=== PATIENT | male | born 1950 | race Caucasian/White ===

== ENCOUNTER → 2016-10-05 | Outpatient (CLI) | payer MEDICARE ==
[~2016-10-05] MED LIST: ACET-1600 PO; ATOR40TA78 PO; CEFD300C37 PO; CLOP75TA PO; DOXY100T PO; LISI1TAB3 PO; OMEP20TA62 PO; OXYC1TAB9 PO; PRED-402 PO; SULF1TAB24 PO
== END | disposition home or self-care (01) ==
LOC: CFH 07:40
PROVIDERS: ATTEND Internal Medicine Critical Care Medicine
DX: I77.810 Thoracic aortic ectasia (principal); J98.11 Atelectasis; N28.1 Cyst of kidney, acquired; N62 Hypertrophy of breast; M25.78 Osteophyte, vertebrae; J98.4 Other disorders of lung; I70.0 Atherosclerosis of aorta
CPT/HCPCS: 71250

== ENCOUNTER → 2016-12-04 | Outpatient (CLI) | payer MEDICARE ==
[~2016-12-04] MED LIST changes: +ALBU0.63 NEB; +ALBU18HF INH; +OMNIPAQUE 350 MG/ML, 150 ML BOTTLE ONE; +OXYC1TAB7 PO
== END | disposition home or self-care (01) ==
LOC: CFH 13:47
PROVIDERS: ATTEND Urology
DX: N28.1 Cyst of kidney, acquired (principal); K57.30 Diverticulosis of large intestine without perforation or abscess without bleeding; I70.0 Atherosclerosis of aorta; K76.89 Other specified diseases of liver
CPT/HCPCS: 74178; Q9967

== ENCOUNTER → 2017-01-24 | Outpatient (CLI) | payer MEDICARE ==
[~2017-01-24] MED LIST changes: +GADOBUTROL 7.5 MMOL/7.5 ML VIAL ONE; -OMNIPAQUE 350 MG/ML, 150 ML BOTTLE ONE
== END | disposition home or self-care (01) ==
LOC: CFH 09:18
PROVIDERS: ATTEND Specialist
DX: R90.82 White matter disease, unspecified (principal)
CPT/HCPCS: 70553; 82565; A9585

== ENCOUNTER 2017-04-19 11:24 | Inpatient (IN) | payer MEDICARE ==
[~2017-04-19] VITALS: Ht 162.6 cm; Wt 67.8 kg
[~2017-04-19 11:24] MED LIST changes: -GADOBUTROL 7.5 MMOL/7.5 ML VIAL ONE
[2017-04-19] MEDS ORDERED: ALBUTEROL/IPRATROPIUM 2.5MG/0.5MG, 3 ML ONE ×2 (12:14→14:27)
[2017-04-19 12:25] LABS: BASOPHILS # (AUTO) 0.03 x10^3/uL (0-0.1); BASOPHILS % (AUTO) 0 % (0-1); EOSINOPHILS # (AUTO) 0.03 x10^3/uL (0-0.4); EOSINOPHILS % (AUTO) 0 % (1-7); LYMPHOCYTES # (AUTO) 1.77 x10^3/uL (1-3.4); LYMPHOCYTES % (AUTO) 14 % (22-44); MD NO; MEAN CORPUSCULAR HEMOGLOBIN 31.8 pg (27.5-34.5); MEAN CORPUSCULAR HGB CONC 33.7 g/dL (33.2-36.2); MEAN CORPUSCULAR VOLUME 94.4 fL (81-97); MEAN PLATELET VOLUME 7.5 fL (7.4-10.4); MONOCYTES # (AUTO) 1.29 x10^3/uL (0.2-0.8); MONOCYTES % (AUTO) 10 % (2-9); NEUTROPHILS # (AUTO) 9.55 x10^3/uL (1.8-6.8); NEUTROPHILS % (AUTO) 75 % (42-75); PLATELET COUNT 206 x10^3/uL (130-400); RED BLOOD COUNT 4.91 x10^6/uL (4.38-5.82); RED CELL DISTRIBUTION WIDTH 12.7 % (9.4-14.8)
[2017-04-19] MEDS ORDERED: ALBUTEROL/IPRATROPIUM 2.5MG/0.5MG, 3 ML NPPB ONE (12:30)
[2017-04-19] MEDS ORDERED: SODIUM CHLORIDE FLUSH 10ML SYR IVF ONE (12:30)
[2017-04-19 12:33] LABS: ALANINE AMINOTRANSFERASE 28 U/L (12-78); ALBUMIN 3.8 g/dL (3.4-5.0); ANION GAP 6 mmol/L (5-15); CALCIUM 8.8 mg/dL (8.5-10.1); CHLORIDE 106 mmol/L (98-107)
[2017-04-19 12:42] LABS: ALKALINE PHOSPHATASE 43 U/L (45-117); BILIRUBIN,TOTAL 0.3 mg/dL (0.2-1.0); CREATININE 0.87 mg/dL (0.7-1.3); TOTAL PROTEIN 7.2 g/dL (6.4-8.2)
[2017-04-19] MEDS ORDERED: ALBU18HF INH (13:11)
[2017-04-19] MEDS ORDERED: GLYC10.7 INH (13:13)
[2017-04-19] MEDS ORDERED: VARE1TAB21 PO (13:13)
[2017-04-19] MEDS ORDERED: ALBUTEROL 0.5%, 20ML NPPB SCH (13:30)
[2017-04-19 13:52] LABS: RAPID INFLUENZA A Negative (Negative); RAPID INFLUENZA B Negative (Negative)
[2017-04-19] MEDS: ALBUTEROL/IPRATROPIUM 2.5MG/0.5MG, 3 ML NPPB SCH ×2 (14:31→19:30)
[2017-04-19] MEDS ORDERED: DOCUSATE 100 MG CAPSULE PO PRN (15:00)
[2017-04-19] MEDS ORDERED: PROMETHAZINE 25 MG/ML, 1ML IM PRN (15:00)
[2017-04-19] MEDS ORDERED: POLYETHYLENE GLYCOL 17 GM PACKET PO PRN (15:00)
[2017-04-19] MEDS ORDERED: BISACODYL 10 MG SUPP PR PRN (15:00)
[2017-04-19] MEDS ORDERED: ONDANSETRON 2MG/ML, 2ML IVPush PRN (15:00)
[2017-04-19] MEDS: methylPREDNISolone SOD SUCC 125 MG/2 ML IVPush SCH (16:15)
[2017-04-19] MEDS: ENOXAPARIN 40 MG/0.4 ML SQ SCH (16:17)
[2017-04-19] MEDS: SODIUM CHLORIDE 0.9% 1,000 ML IV SCH (17:15)
[2017-04-19] MEDS: ACETAMINOPHEN 325 MG TABLET PO PRN (17:29)
[2017-04-19] MEDS: NICOTINE 21 MG/24 HR PATCH.TD24 TD SCH (18:45)
[2017-04-19 18:57] VITALS: BP 126/71
[2017-04-19] MEDS: GLYCOPYRROLATE INH SCH (20:35)
[2017-04-19] MEDS: ATORVASTATIN 40 MG TABLET PO SCH (20:35)
[2017-04-19] MEDS: FORMOTEROL FUM INH SCH (20:35)
[2017-04-19] MEDS: DOXYCYCLINE 100MG TABLET PO SCH (20:35)
[2017-04-20] MEDS: methylPREDNISolone SOD SUCC 125 MG/2 ML IVPush SCH ×3 (00:11→16:00)
[2017-04-20] MEDS: SODIUM CHLORIDE 0.9% 1,000 ML IV SCH (00:39)
[2017-04-20 02:00] VITALS: BP 130/71
[2017-04-20 05:20] LABS: BASOPHILS # (AUTO) 0.01 x10^3/uL (0-0.1); BASOPHILS % (AUTO) 0 % (0-1); EOSINOPHILS % (AUTO) 0 % (1-7); LYMPHOCYTES % (AUTO) 8 % (22-44); MD NO; MEAN CORPUSCULAR HGB CONC 33.7 g/dL (33.2-36.2); MEAN CORPUSCULAR VOLUME 94.8 fL (81-97); MEAN PLATELET VOLUME 7.9 fL (7.4-10.4); MONOCYTES # (AUTO) 0.29 x10^3/uL (0.2-0.8); MONOCYTES % (AUTO) 3 % (2-9); NEUTROPHILS # (AUTO) 8.97 x10^3/uL (1.8-6.8); NEUTROPHILS % (AUTO) 89 % (42-75); PLATELET COUNT 174 x10^3/uL (130-400); RED BLOOD COUNT 4.48 x10^6/uL (4.38-5.82); RED CELL DISTRIBUTION WIDTH 12.8 % (9.4-14.8)
[2017-04-20 05:33] LABS: CHLORIDE 108 mmol/L (98-107)
[2017-04-20 05:48] LABS: ALANINE AMINOTRANSFERASE 26 U/L (12-78); ALBUMIN 3.2 g/dL (3.4-5.0); ALKALINE PHOSPHATASE 39 U/L (45-117); ANION GAP 7 mmol/L (5-15); BILIRUBIN,TOTAL 0.3 mg/dL (0.2-1.0); CALCIUM 8.7 mg/dL (8.5-10.1); CREATININE 0.88 mg/dL (0.7-1.3); THYROID STIMULATING HORMONE 0.184 mIU/L (0.358-3.740); TOTAL PROTEIN 6.1 g/dL (6.4-8.2)
[2017-04-20 06:13] VITALS: BP 117/65
[2017-04-20] MEDS: ALBUTEROL/IPRATROPIUM 2.5MG/0.5MG, 3 ML NPPB SCH ×4 (07:30→20:00)
[2017-04-20] MEDS: NICOTINE 21 MG/24 HR PATCH.TD24 TD SCH (08:42)
[2017-04-20] MEDS: OXYcodone/APAP 5/325MG TABLET PO SCH ×2 (08:45→18:18)
[2017-04-20] MEDS: OMEPRAZOLE 20 MG CAPSULE.DR PO SCH (08:45)
[2017-04-20] MEDS: DOXYCYCLINE 100MG TABLET PO SCH ×2 (08:45→20:28)
[2017-04-20] MEDS: CLOPIDOGREL 75 MG TABLET PO SCH (08:45)
[2017-04-20] MEDS: VARENICLINE 1MG TABLET PO SCH (08:45)
[2017-04-20] MEDS: GLYCOPYRROLATE INH SCH ×2 (08:46→20:28)
[2017-04-20] MEDS: FORMOTEROL FUM INH SCH ×2 (08:46→20:28)
[2017-04-20] MEDS: ACETAMINOPHEN 325 MG TABLET PO PRN (09:04)
[2017-04-20] MEDS: LISINOPRIL PO SCH (10:00)
[2017-04-20] MEDS: HYDROCHLOROTHIAZIDE PO SCH (10:00)
[2017-04-20] MEDS: [UNRECOGNIZED DRUG - OTHER] PO SCH (10:00)
[2017-04-20 13:39] VITALS: BP 117/61
[2017-04-20] MEDS: ENOXAPARIN 40 MG/0.4 ML SQ SCH (16:00)
[2017-04-20 18:54] VITALS: BP 122/63
[2017-04-20] MEDS: ATORVASTATIN 40 MG TABLET PO SCH (20:28)
[2017-04-21 02:30] VITALS: BP 119/69
[2017-04-21] MEDS: methylPREDNISolone SOD SUCC 125 MG/2 ML IVPush SCH ×2 (04:10→12:30)
[2017-04-21 05:17] LABS: BASOPHILS # (AUTO) 0.01 x10^3/uL (0-0.1); BASOPHILS % (AUTO) 0 % (0-1); EOSINOPHILS # (AUTO) 0.01 x10^3/uL (0-0.4); EOSINOPHILS % (AUTO) 0 % (1-7); LYMPHOCYTES # (AUTO) 1.12 x10^3/uL (1-3.4); LYMPHOCYTES % (AUTO) 7 % (22-44); MD NO; MEAN CORPUSCULAR HEMOGLOBIN 32.1 pg (27.5-34.5); MEAN CORPUSCULAR HGB CONC 33.8 g/dL (33.2-36.2); MONOCYTES # (AUTO) 0.89 x10^3/uL (0.2-0.8); MONOCYTES % (AUTO) 6 % (2-9); NEUTROPHILS # (AUTO) 13.09 x10^3/uL (1.8-6.8); NEUTROPHILS % (AUTO) 87 % (42-75); PLATELET COUNT 182 x10^3/uL (130-400); RED BLOOD COUNT 4.34 x10^6/uL (4.38-5.82); RED CELL DISTRIBUTION WIDTH 13.1 % (9.4-14.8)
[2017-04-21 05:24] LABS: ANION GAP 6 mmol/L (5-15); CHLORIDE 105 mmol/L (98-107)
[2017-04-21 05:26] LABS: CREATININE 0.88 mg/dL (0.7-1.3)
[2017-04-21] MEDS: ALBUTEROL/IPRATROPIUM 2.5MG/0.5MG, 3 ML NPPB SCH ×4 (07:00→19:33)
[2017-04-21 07:10] VITALS: BP 112/60
[2017-04-21] MEDS: GLYCOPYRROLATE INH SCH ×2 (08:10→20:11)
[2017-04-21] MEDS: DOXYCYCLINE 100MG TABLET PO SCH ×2 (08:10→20:11)
[2017-04-21] MEDS: VARENICLINE 1MG TABLET PO SCH (08:10)
[2017-04-21] MEDS: FORMOTEROL FUM INH SCH ×2 (08:10→20:11)
[2017-04-21] MEDS: CLOPIDOGREL 75 MG TABLET PO SCH (08:10)
[2017-04-21] MEDS: OMEPRAZOLE 20 MG CAPSULE.DR PO SCH (08:10)
[2017-04-21] MEDS: HYDROCHLOROTHIAZIDE PO SCH (08:11)
[2017-04-21] MEDS: LISINOPRIL PO SCH (08:11)
[2017-04-21] MEDS: [UNRECOGNIZED DRUG - OTHER] PO SCH (08:11)
[2017-04-21] MEDS: OXYcodone/APAP 5/325MG TABLET PO SCH (08:18)
[2017-04-21] MEDS: NICOTINE 14MG/24 HR PATCH.TD24 TD SCH (08:30)
[2017-04-21] MEDS ORDERED: NICOTINE GUM 2 MG BC PRN (08:30)
[2017-04-21 12:33] VITALS: BP 127/59
[2017-04-21] MEDS: ENOXAPARIN 40 MG/0.4 ML SQ SCH (15:59)
[2017-04-21] MEDS: ACETAMINOPHEN 325 MG TABLET PO PRN (20:11)
[2017-04-21] MEDS: ATORVASTATIN 40 MG TABLET PO SCH (20:11)
[2017-04-21 20:18] VITALS: BP 125/64
[2017-04-22 01:08] VITALS: BP 121/55
[2017-04-22 07:37] VITALS: BP 157/81
[2017-04-22] MEDS: NICOTINE 14MG/24 HR PATCH.TD24 TD SCH (07:47)
[2017-04-22] MEDS: predniSONE 50MG TABLET PO SCH (07:47)
[2017-04-22] MEDS: VARENICLINE 1MG TABLET PO SCH ×2 (07:47→21:08)
[2017-04-22] MEDS: ACETAMINOPHEN 325 MG TABLET PO PRN (07:47)
[2017-04-22] MEDS: DOXYCYCLINE 100MG TABLET PO SCH ×2 (07:48→21:08)
[2017-04-22] MEDS: CLOPIDOGREL 75 MG TABLET PO SCH (07:48)
[2017-04-22] MEDS: [UNRECOGNIZED DRUG - OTHER] PO SCH (07:49)
[2017-04-22] MEDS: HYDROCHLOROTHIAZIDE PO SCH (07:49)
[2017-04-22] MEDS: FORMOTEROL FUM INH SCH ×2 (07:49→21:00)
[2017-04-22] MEDS: GLYCOPYRROLATE INH SCH ×2 (07:49→21:00)
[2017-04-22] MEDS: LISINOPRIL PO SCH (07:49)
[2017-04-22] MEDS: OMEPRAZOLE 20 MG CAPSULE.DR PO SCH (07:57)
[2017-04-22] MEDS: ALBUTEROL/IPRATROPIUM 2.5MG/0.5MG, 3 ML NPPB SCH ×4 (08:05→19:11)
[2017-04-22 13:24] VITALS: BP 120/69
[2017-04-22] MEDS: ENOXAPARIN 40 MG/0.4 ML SQ SCH (16:33)
[2017-04-22 20:29] VITALS: BP 139/72
[2017-04-22] MEDS ORDERED: OXYcodone/APAP 5/325MG TABLET PO SCH (21:00)
[2017-04-22] MEDS: ATORVASTATIN 40 MG TABLET PO SCH (21:08)
[2017-04-23 03:58] VITALS: BP 119/66
[2017-04-23 06:49] VITALS: BP 118/71
[2017-04-23] MEDS: ALBUTEROL/IPRATROPIUM 2.5MG/0.5MG, 3 ML NPPB SCH ×2 (07:45→12:00)
[2017-04-23] MEDS: NICOTINE 14MG/24 HR PATCH.TD24 TD SCH (08:19)
[2017-04-23] MEDS: OMEPRAZOLE 20 MG CAPSULE.DR PO SCH (08:20)
[2017-04-23] MEDS: DOXYCYCLINE 100MG TABLET PO SCH (08:20)
[2017-04-23] MEDS: predniSONE 50MG TABLET PO SCH (08:20)
[2017-04-23] MEDS: VARENICLINE 1MG TABLET PO SCH (08:20)
[2017-04-23] MEDS: CLOPIDOGREL 75 MG TABLET PO SCH (08:20)
[2017-04-23] MEDS: HYDROCHLOROTHIAZIDE PO SCH (08:22)
[2017-04-23] MEDS: FORMOTEROL FUM INH SCH (08:22)
[2017-04-23] MEDS: [UNRECOGNIZED DRUG - OTHER] PO SCH (08:22)
[2017-04-23] MEDS: GLYCOPYRROLATE INH SCH (08:22)
[2017-04-23] MEDS: LISINOPRIL PO SCH (08:22)
[2017-04-23] MEDS ORDERED: DOXY100T PO (12:53)
[2017-04-23] MEDS ORDERED: PRED10TA PO (14:26)
== END 2017-04-23 15:01 | disposition home or self-care (01) | DRG 189 ==
LOC: ED 12:13 → EDIP 13:43 → 3NE 15:04 → DCLOUNGE 04-23 14:40
PROVIDERS: ADMIT Internal Medicine; ATTEND Internal Medicine
DX: J96.21 Acute and chronic respiratory failure with hypoxia (principal); J44.0 Chronic obstructive pulmonary disease with (acute) lower respiratory infection; Z99.81 Dependence on supplemental oxygen; J44.1 Chronic obstructive pulmonary disease with (acute) exacerbation; E78.5 Hyperlipidemia, unspecified; G89.4 Chronic pain syndrome; I10 Essential (primary) hypertension; I73.9 Peripheral vascular disease, unspecified; J20.9 Acute bronchitis, unspecified; F17.210 Nicotine dependence, cigarettes, uncomplicated; Z66 Do not resuscitate; T38.0X5A Adverse effect of glucocorticoids and synthetic analogues, initial encounter; K21.9 Gastro-esophageal reflux disease without esophagitis; R51 Headache; R91.1 Solitary pulmonary nodule; Z88.8 Allergy status to other drugs, medicaments and biological substances; Z82.49 Family history of ischemic heart disease and other diseases of the circulatory system; Z79.899 Other long term (current) drug therapy; Z98.1 Arthrodesis status
CPT/HCPCS: 36415; 71010; 80048; 80053; 83735; 83880; 84100; 84439; 84443; 85025; 87040; 87400; 93005; 94640; 99285; J1650; J7620; J2930; J7030; J7512

== ENCOUNTER 2017-06-14 06:38 | Inpatient (IN) | payer MEDICARE ==
[~2017-06-14] VITALS: Ht 162.6 cm; Wt 68.8 kg
[~2017-06-14 06:38] MED LIST changes: +GLYC10.7 INH; +PRED10TA PO; +VARE1TAB21 PO
[2017-06-14] MEDS ORDERED: ALBUTEROL/IPRATROPIUM 2.5MG/0.5MG, 3 ML ONE ×2 (07:21→08:00)
[2017-06-14 07:31] LABS: BASOPHILS # (AUTO) 0.03 x10^3/uL (0-0.1); BASOPHILS % (AUTO) 0 % (0-1); EOSINOPHILS # (AUTO) 0.01 x10^3/uL (0-0.4); EOSINOPHILS % (AUTO) 0 % (1-7); LYMPHOCYTES # (AUTO) 1.29 x10^3/uL (1-3.4); LYMPHOCYTES % (AUTO) 21 % (22-44); MD NO; MEAN CORPUSCULAR HGB CONC 33.9 g/dL (33.2-36.2); MEAN CORPUSCULAR VOLUME 94.3 fL (81-97); MEAN PLATELET VOLUME 7.2 fL (7.4-10.4); MONOCYTES # (AUTO) 1.06 x10^3/uL (0.2-0.8); MONOCYTES % (AUTO) 17 % (2-9); NEUTROPHILS # (AUTO) 3.88 x10^3/uL (1.8-6.8); NEUTROPHILS % (AUTO) 62 % (42-75); PLATELET COUNT 191 x10^3/uL (130-400); RED BLOOD COUNT 4.35 x10^6/uL (4.38-5.82); RED CELL DISTRIBUTION WIDTH 13.8 % (9.4-14.8)
[2017-06-14 07:42] LABS: ALBUMIN 3.8 g/dL (3.4-5.0); ANION GAP 10 mmol/L (5-15); CALCIUM 8.8 mg/dL (8.5-10.1); CHLORIDE 105 mmol/L (98-107); CREATININE 0.94 mg/dL (0.7-1.3)
[2017-06-14] MEDS: ALBUTEROL/IPRATROPIUM 2.5MG/0.5MG, 3 ML NPPB SCH ×5 (07:44→22:00)
[2017-06-14 09:52] LABS: TROPONIN I < 0.015 ng/mL (0.000-0.045)
[2017-06-14 09:59] LABS: RAPID INFLUENZA A Negative (Negative); RAPID INFLUENZA B Negative (Negative)
[2017-06-14] MEDS ORDERED: OXYcodone/APAP 5/325MG TABLET PO SCH (10:30)
[2017-06-14] MEDS: VARENICLINE 1MG TABLET PO SCH (10:30)
[2017-06-14] MEDS ORDERED: BUDESONIDE 0.5 MG/2 ML INHA INH SCH (10:30)
[2017-06-14] MEDS: OMEPRAZOLE 20 MG CAPSULE.DR PO SCH (10:30)
[2017-06-14] MEDS: HYDROCHLOROTHIAZIDE 12.5 MG CAPSULE PO SCH (10:30)
[2017-06-14] MEDS: LISINOPRIL 10 MG TABLET PO SCH (10:30)
[2017-06-14] MEDS: Glycopyrrolate/Formoterol Fum (Bevespi Aerosphere Inhaler) INH SCH ×2 (10:30→20:56)
[2017-06-14] MEDS ORDERED: ONDANSETRON 2MG/ML, 2ML IVPush PRN (10:30)
[2017-06-14 10:50] VITALS: BP 112/66
[2017-06-14] MEDS ORDERED: ALBUTEROL/IPRATROPIUM 2.5MG/0.5MG, 3 ML NPPB SCH (11:00)
[2017-06-14] MEDS ORDERED: OXYC-302 PO (11:11)
[2017-06-14] MEDS ORDERED: ALBUTEROL/IPRATROPIUM 2.5MG/0.5MG, 3 ML NPPB PRN (12:00)
[2017-06-14] MEDS: BENZONATATE 100 MG CAPSULE PO SCH ×3 (12:50→20:55)
[2017-06-14] MEDS: GUAIFENESIN/DM 200-20MG, 10ML UDC PO PRN (12:50)
[2017-06-14 12:57] VITALS: BP 126/74
[2017-06-14] MEDS ORDERED: ALBUTEROL SULFATE 2.5 MG/3 ML NPPB PRN (13:00)
[2017-06-14] MEDS: methylPREDNISolone SOD SUCC 125 MG/2 ML IVPush SCH ×2 (14:34→20:55)
[2017-06-14] MEDS: DOXYCYCLINE 100MG TABLET PO SCH ×2 (14:34→20:55)
[2017-06-14 19:24] VITALS: BP 121/71
[2017-06-14] MEDS: ATORVASTATIN 40 MG TABLET PO SCH (20:55)
[2017-06-14] MEDS: CLOPIDOGREL 75 MG TABLET PO SCH (20:55)
[2017-06-14] MEDS ORDERED: DIPHENHYDRAMINE 50 MG CAPSULE PO PRN (21:00)
[2017-06-15 02:01] VITALS: BP 117/73
[2017-06-15] MEDS: methylPREDNISolone SOD SUCC 125 MG/2 ML IVPush SCH ×3 (04:47→20:15)
[2017-06-15] MEDS: ALBUTEROL/IPRATROPIUM 2.5MG/0.5MG, 3 ML NPPB SCH ×5 (06:00→22:45)
[2017-06-15 08:21] VITALS: BP 133/66
[2017-06-15] MEDS: VARENICLINE 1MG TABLET PO SCH (09:00)
[2017-06-15] MEDS: Glycopyrrolate/Formoterol Fum (Bevespi Aerosphere Inhaler) INH SCH ×2 (09:00→20:15)
[2017-06-15] MEDS: GUAIFENESIN/DM 200-20MG, 10ML UDC PO PRN (10:04)
[2017-06-15] MEDS: OMEPRAZOLE 20 MG CAPSULE.DR PO SCH (10:06)
[2017-06-15] MEDS: HYDROCHLOROTHIAZIDE 12.5 MG CAPSULE PO SCH (10:06)
[2017-06-15] MEDS: CLOPIDOGREL 75 MG TABLET PO SCH (10:06)
[2017-06-15] MEDS: DOXYCYCLINE 100MG TABLET PO SCH ×2 (10:07→20:15)
[2017-06-15] MEDS: BENZONATATE 100 MG CAPSULE PO SCH ×3 (10:07→20:15)
[2017-06-15] MEDS: LISINOPRIL 10 MG TABLET PO SCH (10:08)
[2017-06-15] MEDS: ACETAMINOPHEN 325 MG TABLET PO PRN (10:08)
[2017-06-15 14:47] VITALS: BP 144/79
[2017-06-15] MEDS ORDERED: LORazepam 0.5MG TABLET PO PRN (15:00)
[2017-06-15] MEDS ORDERED: MAGNESIUM CITRATE 300ML ORAL SOL PO PRN (17:30)
[2017-06-15 18:28] VITALS: BP 112/65
[2017-06-15] MEDS: ATORVASTATIN 40 MG TABLET PO SCH (20:15)
[2017-06-15] MEDS: OXYcodone/APAP 5/325MG TABLET PO PRN (20:15)
[2017-06-16 00:53] VITALS: BP 130/74
[2017-06-16] MEDS: methylPREDNISolone SOD SUCC 125 MG/2 ML IVPush SCH ×3 (04:19→21:18)
[2017-06-16] MEDS: ALBUTEROL/IPRATROPIUM 2.5MG/0.5MG, 3 ML NPPB SCH ×5 (06:00→22:00)
[2017-06-16 07:08] VITALS: BP 120/67
[2017-06-16] MEDS: Glycopyrrolate/Formoterol Fum (Bevespi Aerosphere Inhaler) INH SCH ×2 (08:00→17:31)
[2017-06-16] MEDS: GUAIFENESIN/DM 200-20MG, 10ML UDC PO PRN ×2 (09:18→17:30)
[2017-06-16] MEDS: CLOPIDOGREL 75 MG TABLET PO SCH (09:19)
[2017-06-16] MEDS: DOXYCYCLINE 100MG TABLET PO SCH ×2 (09:19→21:19)
[2017-06-16] MEDS: BENZONATATE 100 MG CAPSULE PO SCH ×3 (09:19→21:18)
[2017-06-16] MEDS: LISINOPRIL 10 MG TABLET PO SCH (09:19)
[2017-06-16] MEDS: SENNA/DOCUSATE TABLET PO SCH (09:19)
[2017-06-16] MEDS: HYDROCHLOROTHIAZIDE 12.5 MG CAPSULE PO SCH (09:19)
[2017-06-16] MEDS: VARENICLINE 1MG TABLET PO SCH (09:20)
[2017-06-16] MEDS: OMEPRAZOLE 20 MG CAPSULE.DR PO SCH (09:20)
[2017-06-16 13:08] VITALS: BP 128/72
[2017-06-16] MEDS: NICOTINE 7 MG/24 HR PATCH.TD24 TD SCH (13:19)
[2017-06-16] MEDS ORDERED: OMNIPAQUE 350 MG/ML, 100ML BOTTLE ONE (14:27)
[2017-06-16] MEDS: LORazepam 1MG TABLET PO PRN (17:30)
[2017-06-16 18:53] VITALS: BP 122/74
[2017-06-16] MEDS: ATORVASTATIN 40 MG TABLET PO SCH (21:00)
[2017-06-16] MEDS: OXYcodone/APAP 5/325MG TABLET PO PRN (21:18)
[2017-06-17 00:08] VITALS: BP 115/53
[2017-06-17] MEDS: methylPREDNISolone SOD SUCC 125 MG/2 ML IVPush SCH ×3 (04:53→21:24)
[2017-06-17 06:52] VITALS: BP 120/66
[2017-06-17] MEDS: ALBUTEROL/IPRATROPIUM 2.5MG/0.5MG, 3 ML NPPB SCH ×5 (07:40→23:00)
[2017-06-17] MEDS: Glycopyrrolate/Formoterol Fum (Bevespi Aerosphere Inhaler) INH SCH ×2 (09:00→21:00)
[2017-06-17] MEDS: VARENICLINE 1MG TABLET PO SCH (09:00)
[2017-06-17] MEDS: DOXYCYCLINE 100MG TABLET PO SCH ×2 (09:37→21:24)
[2017-06-17] MEDS: SENNA/DOCUSATE TABLET PO SCH (09:37)
[2017-06-17] MEDS: CLOPIDOGREL 75 MG TABLET PO SCH (09:37)
[2017-06-17] MEDS: HYDROCHLOROTHIAZIDE 12.5 MG CAPSULE PO SCH (09:38)
[2017-06-17] MEDS: LISINOPRIL 10 MG TABLET PO SCH (09:38)
[2017-06-17] MEDS: BENZONATATE 100 MG CAPSULE PO SCH ×3 (09:38→21:24)
[2017-06-17] MEDS: OMEPRAZOLE 20 MG CAPSULE.DR PO SCH (09:41)
[2017-06-17] MEDS: NICOTINE 7 MG/24 HR PATCH.TD24 TD SCH (09:41)
[2017-06-17] MEDS: LORazepam 1MG TABLET PO PRN (09:41)
[2017-06-17] MEDS ORDERED: FAMOTIDINE 20 MG TABLET PO SCH (12:00)
[2017-06-17 12:48] VITALS: BP 117/62
[2017-06-17 19:47] VITALS: BP 135/72
[2017-06-17] MEDS: ATORVASTATIN 40 MG TABLET PO SCH (21:24)
[2017-06-17] MEDS: OXYcodone/APAP 5/325MG TABLET PO PRN (21:24)
[2017-06-18 01:59] VITALS: BP 117/66
[2017-06-18] MEDS: methylPREDNISolone SOD SUCC 125 MG/2 ML IVPush SCH ×3 (04:39→20:05)
[2017-06-18] MEDS: ALBUTEROL/IPRATROPIUM 2.5MG/0.5MG, 3 ML NPPB SCH ×5 (06:00→23:15)
[2017-06-18 06:43] VITALS: BP 134/79
[2017-06-18] MEDS: Glycopyrrolate/Formoterol Fum (Bevespi Aerosphere Inhaler) INH SCH ×3 (09:00→20:10)
[2017-06-18] MEDS: BENZONATATE 100 MG CAPSULE PO SCH ×3 (09:05→20:04)
[2017-06-18] MEDS: SENNA/DOCUSATE TABLET PO SCH (09:05)
[2017-06-18] MEDS: OMEPRAZOLE 20 MG CAPSULE.DR PO SCH (09:05)
[2017-06-18] MEDS: LISINOPRIL 10 MG TABLET PO SCH (09:05)
[2017-06-18] MEDS: CLOPIDOGREL 75 MG TABLET PO SCH (09:05)
[2017-06-18] MEDS: DOXYCYCLINE 100MG TABLET PO SCH ×2 (09:05→20:04)
[2017-06-18] MEDS: VARENICLINE 1MG TABLET PO SCH (09:06)
[2017-06-18] MEDS: HYDROCHLOROTHIAZIDE 12.5 MG CAPSULE PO SCH (09:06)
[2017-06-18] MEDS: ACETAMINOPHEN 325 MG TABLET PO PRN ×2 (09:13→20:04)
[2017-06-18] MEDS ORDERED: OMEP20TA62 PO (12:26)
[2017-06-18] MEDS ORDERED: PRED20TA PO (12:26)
[2017-06-18] MEDS ORDERED: GUAI600T80 PO (12:30)
[2017-06-18 13:19] VITALS: BP 144/71
[2017-06-18] MEDS: NICOTINE 7 MG/24 HR PATCH.TD24 TD SCH (14:15)
[2017-06-18 18:48] VITALS: BP 120/73
[2017-06-18] MEDS: ATORVASTATIN 40 MG TABLET PO SCH (20:05)
[2017-06-19 02:58] VITALS: BP 123/68
[2017-06-19] MEDS: methylPREDNISolone SOD SUCC 125 MG/2 ML IVPush SCH (05:11)
[2017-06-19 06:40] VITALS: BP 135/71
[2017-06-19] MEDS: ALBUTEROL/IPRATROPIUM 2.5MG/0.5MG, 3 ML NPPB SCH (07:55)
[2017-06-19] MEDS: SENNA/DOCUSATE TABLET PO SCH (09:00)
[2017-06-19] MEDS: Glycopyrrolate/Formoterol Fum (Bevespi Aerosphere Inhaler) INH SCH (09:00)
[2017-06-19] MEDS: LISINOPRIL 10 MG TABLET PO SCH (09:49)
[2017-06-19] MEDS: BENZONATATE 100 MG CAPSULE PO SCH (09:49)
[2017-06-19] MEDS: DOXYCYCLINE 100MG TABLET PO SCH (09:49)
[2017-06-19] MEDS: HYDROCHLOROTHIAZIDE 12.5 MG CAPSULE PO SCH (09:50)
[2017-06-19] MEDS: CLOPIDOGREL 75 MG TABLET PO SCH (09:50)
[2017-06-19] MEDS: VARENICLINE 1MG TABLET PO SCH (09:50)
[2017-06-19] MEDS: OMEPRAZOLE 20 MG CAPSULE.DR PO SCH (09:50)
== END 2017-06-19 11:27 | disposition home or self-care (01) | DRG 189 ==
LOC: ED 07:13 → EDIP 09:33 → 3NE 10:36
PROVIDERS: ADMIT Internal Medicine; ATTEND Internal Medicine
DX: J96.01 Acute respiratory failure with hypoxia (principal); J44.1 Chronic obstructive pulmonary disease with (acute) exacerbation; E78.5 Hyperlipidemia, unspecified; G89.4 Chronic pain syndrome; I10 Essential (primary) hypertension; I73.9 Peripheral vascular disease, unspecified; K21.9 Gastro-esophageal reflux disease without esophagitis; R13.10 Dysphagia, unspecified; Z87.891 Personal history of nicotine dependence
CPT/HCPCS: 36415; 71046; 71250; 71275; 74230; 80048; 82040; 83605; 83880; 84484; 85025; 87040; 87400; 93005; 94640; 99285; J7620; Q9967; J2930; J7512

== ENCOUNTER → 2018-07-02 | Outpatient (CLI) | payer MEDICARE ==
[~2018-07-02] MED LIST changes: +GUAI600T80 PO; +OXYC-302 PO; +OXYC-432 PO; -OXYC1TAB9 PO; +PRED20TA PO
== END | disposition home or self-care (01) ==
LOC: CFH 08:24
PROVIDERS: ATTEND Registered Nurse
DX: Z12.2 Encounter for screening for malignant neoplasm of respiratory organs (principal); D71 Functional disorders of polymorphonuclear neutrophils; I25.10 Atherosclerotic heart disease of native coronary artery without angina pectoris; J84.10 Pulmonary fibrosis, unspecified; F17.210 Nicotine dependence, cigarettes, uncomplicated; Z84.89 Family history of other specified conditions; Z82.49 Family history of ischemic heart disease and other diseases of the circulatory system; Z83.6 Family history of other diseases of the respiratory system
CPT/HCPCS: G0297

== ENCOUNTER 2018-09-17 11:01 | Emergency (ER) | payer MEDICARE ==
[~2018-09-17] VITALS: Ht 162.6 cm; Wt 66.2 kg
[2018-09-17] MEDS ORDERED: SODIUM CHLORIDE FLUSH 10ML SYR IVF ONE (11:30)
[2018-09-17 12:05] LABS: BASOPHILS # (AUTO) 0.03 x10^3/uL (0-0.1); BASOPHILS % (AUTO) 0 % (0-1); EOSINOPHILS # (AUTO) 0.38 x10^3/uL (0-0.4); EOSINOPHILS % (AUTO) 5 % (1-7); LYMPHOCYTES # (AUTO) 1.42 x10^3/uL (1-3.4); LYMPHOCYTES % (AUTO) 19 % (22-44); MD NO; MEAN CORPUSCULAR HEMOGLOBIN 31.6 pg (27.5-34.5); MEAN CORPUSCULAR HGB CONC 33.4 g/dL (33.2-36.2); MEAN CORPUSCULAR VOLUME 94.7 fL (81-97); MEAN PLATELET VOLUME 7.1 fL (7.4-10.4); MONOCYTES % (AUTO) 10 % (2-9); NEUTROPHILS # (AUTO) 5.08 x10^3/uL (1.8-6.8); NEUTROPHILS % (AUTO) 66 % (42-75); PLATELET COUNT 200 x10^3/uL (130-400); RED BLOOD COUNT 4.85 x10^6/uL (4.38-5.82); RED CELL DISTRIBUTION WIDTH 13.3 % (9.4-14.8)
--- NOTE | 2018-09-17 12:12 | NUR ---
PT IN BED, NAD, UA & BLOODWORK IN LAB, AWAITING CT SCAN, NO NEEDS AT THIS TIME, WCTM.
[2018-09-17 12:16] LABS: ALBUMIN 3.9 g/dL (3.4-5.0); ANION GAP 8 mmol/L (5-15); CALCIUM 9.1 mg/dL (8.5-10.1); CHLORIDE 103 mmol/L (98-107); PROTHROMBIN TIME 10.5 Seconds (9.6-11.5)
[2018-09-17 12:22] LABS: ALANINE AMINOTRANSFERASE 22 U/L (12-78); ALKALINE PHOSPHATASE 47 U/L (45-117); BILIRUBIN,TOTAL 0.4 mg/dL (0.2-1.0); CREATININE 0.85 mg/dL (0.7-1.3); TOTAL PROTEIN 7.5 g/dL (6.4-8.2); TROPONIN I < 0.015 ng/mL (0.000-0.045)
[2018-09-17 12:31] LABS: MICROSCOPIC NOT IND
[2018-09-17 12:33] LABS: CULTURE INDICATED? NO
--- NOTE | 2018-09-17 12:37 | NUR ---
PT TO CT SCAN IN NAD AT THIS TIME
[2018-09-17] MEDS ORDERED: OMNIPAQUE 350 MG/ML, 100ML BOTTLE ONE (12:50)
--- NOTE | 2018-09-17 13:01 | NUR ---
PT RETURNED FROM CT IN NAD, UP FOR RECHECK
--- NOTE | 2018-09-17 13:29 | NUR ---
PHLEMBOTOMIST AT BEDSIDE TO DRAW ADDITIONAL LAB, PT IN BED, NAD, AWAITING DISPO, WCTM.
[2018-09-17 14:00] VITALS: BP 127/75
--- NOTE | 2018-09-17 14:37 | NUR ---
MD MONROE AT BEDSIDE TO DISCUSS POC W/ PT
== END 2018-09-17 14:52 | disposition home or self-care (01) ==
LOC: ED 13:53
DX: I25.10 Atherosclerotic heart disease of native coronary artery without angina pectoris (principal); M54.5 Low back pain; R10.84 Generalized abdominal pain; I10 Essential (primary) hypertension; K21.9 Gastro-esophageal reflux disease without esophagitis; J44.9 Chronic obstructive pulmonary disease, unspecified; E78.5 Hyperlipidemia, unspecified; F17.210 Nicotine dependence, cigarettes, uncomplicated
CPT/HCPCS: 36415; 74177; 80053; 81003; 83605; 84484; 85025; 85610; 85730; 93005; 99284; Q9967

== ENCOUNTER → 2018-10-24 | Outpatient (CLI) | payer MEDICARE | END | disposition home or self-care (01) | LOC: CVU 06:35 | PROVIDERS: ATTEND Surgery Vascular Surgery | DX: I65.23 Occlusion and stenosis of bilateral carotid arteries (principal); I70.203 Unspecified atherosclerosis of native arteries of extremities, bilateral legs; I10 Essential (primary) hypertension; J44.9 Chronic obstructive pulmonary disease, unspecified; E78.5 Hyperlipidemia, unspecified; E78.00 Pure hypercholesterolemia, unspecified | CPT/HCPCS: 93880; 93922; 93925 ==

== ENCOUNTER → 2018-11-04 | Outpatient (CLI) | payer MEDICARE ==
[~2018-11-04] MED LIST changes: +PANT40TA5 PO; +none per pt
[2018-11-04 09:42] LABS: ALANINE AMINOTRANSFERASE 21 U/L (12-78); ALBUMIN 3.7 g/dL (3.4-5.0); ANION GAP 6 mmol/L (5-15); CALCIUM 9.5 mg/dL (8.5-10.1); CHLORIDE 104 mmol/L (98-107)
[2018-11-04 09:45] LABS: ALKALINE PHOSPHATASE 46 U/L (45-117); BILIRUBIN,TOTAL 0.3 mg/dL (0.2-1.0); CREATININE 0.91 mg/dL (0.7-1.3); TOTAL PROTEIN 7.1 g/dL (6.4-8.2)
== END | disposition home or self-care (01) ==
LOC: STAR 08:07
PROVIDERS: ATTEND Surgery Vascular Surgery
DX: Z01.818 Encounter for other preprocedural examination (principal); K42.9 Umbilical hernia without obstruction or gangrene; I51.7 Cardiomegaly
CPT/HCPCS: 36415; 80053; 93005

== ENCOUNTER 2018-11-11 06:20 | Day surgery (SDC) | payer MEDICARE ==
[~2018-11-11] VITALS: Ht 165.1 cm; Wt 65.0 kg
[2018-11-11] MEDS ORDERED: LACTATED RINGERS 1,000 ML IV SCH (06:54)
[2018-11-11] MEDS ORDERED: EPINEPHRINE 1 MG/ML, 1ML ONE (06:55)
[2018-11-11] MEDS ORDERED: BUPIVACAINE/PF 0.5% ONE (06:55)
[2018-11-11 07:00] VITALS: BP 101/61
[2018-11-11] MEDS ORDERED: MIDAZOLAM 1 MG/ML, 2ML ONE (07:22)
[2018-11-11] MEDS ORDERED: FENTANYL PF 100 MCG/2ML ONE (07:22)
[2018-11-11] MEDS ORDERED: CEFAZOLIN 1,000 MG ONE (07:39)
[2018-11-11] MEDS ORDERED: ONDANSETRON 2MG/ML, 2ML ONE (07:39)
[2018-11-11] MEDS ORDERED: DEXAMETHASONE 4 MG/ML, 1ML ONE (07:39)
[2018-11-11] MEDS ORDERED: PROPOFOL 10 MG/ML, 20ML ONE (07:39)
[2018-11-11] MEDS ORDERED: ONDANSETRON 2MG/ML, 2ML IV PRN (08:00)
[2018-11-11] MEDS ORDERED: ONDANSETRON ODT 8 MG PO PRN (08:00)
[2018-11-11] MEDS ORDERED: PROMETHAZINE 25 MG SUPP PR PRN (08:00)
[2018-11-11] MEDS ORDERED: PROMETHAZINE 25 MG/ML, 1ML IV PRN (08:00)
[2018-11-11] MEDS ORDERED: LABETALOL 5MG/ML, 20ML IV PRN (08:00)
[2018-11-11] MEDS ORDERED: hydrALAzine 20 MG/ML, 1ML IV PRN (08:00)
[2018-11-11] MEDS ORDERED: ACETAMINOPHEN 325 MG TABLET PO PRN (08:00)
[2018-11-11] MEDS ORDERED: ALBUTEROL/IPRATROPIUM 2.5MG/0.5MG, 3 ML NPPB PRN (08:00)
[2018-11-11] MEDS ORDERED: FENTANYL PF 100 MCG/2ML IV PRN (08:00)
[2018-11-11] MEDS ORDERED: OXYcodone 5 MG/5 ML ORAL.SOL UDC PO PRN (08:00)
[2018-11-11] MEDS ORDERED: HYDROmorphone 2 MG/ML, 1ML IVPush PRN (08:00)
[2018-11-11] MEDS ORDERED: ALBUTEROL/IPRATROPIUM 2.5MG/0.5MG, 3 ML ONE (08:04)
== END 2018-11-11 10:05 | disposition home or self-care (01) ==
LOC: SDC 06:20
PROVIDERS: ATTEND Surgery Vascular Surgery
DX: K42.9 Umbilical hernia without obstruction or gangrene (principal); J44.9 Chronic obstructive pulmonary disease, unspecified; I10 Essential (primary) hypertension
CPT/HCPCS: 49585; 94640; C1781; J0171; J0690; J1100; J2250; J2405; J2704; J3010; J7120; J7620

== ENCOUNTER 2019-04-15 08:00 | Outpatient (CLI) | payer MEDICARE ==
[~2019-04-15 08:00] MED LIST changes: +LISI1TAB23 PO; -LISI1TAB3 PO
== END 2019-04-15 23:59 | disposition home or self-care (01) ==
LOC: CFH 08:00
PROVIDERS: ATTEND Neurological Surgery
DX: M47.812 Spondylosis without myelopathy or radiculopathy, cervical region (principal); M48.02 Spinal stenosis, cervical region; M43.22 Fusion of spine, cervical region; M25.78 Osteophyte, vertebrae; F17.200 Nicotine dependence, unspecified, uncomplicated
CPT/HCPCS: 72125

== ENCOUNTER → 2020-07-07 | Outpatient (CLI) | payer MEDICARE ==
[~2020-07-07] MED LIST changes: -OXYC-302 PO; -OXYC-432 PO; +OXYC1TAB14 PO; +OXYC1TAB18 PO; -PANT40TA5 PO; +PANT40TA6 PO
== END | disposition home or self-care (01) ==
LOC: CFH 10:29
PROVIDERS: ATTEND Registered Nurse
DX: Z12.2 Encounter for screening for malignant neoplasm of respiratory organs (principal); R91.1 Solitary pulmonary nodule; F17.210 Nicotine dependence, cigarettes, uncomplicated
CPT/HCPCS: 71271

== ENCOUNTER 2020-07-23 05:43 | Day surgery (SDC) | payer MEDICARE ==
[2020-07-20 10:52] LABS: BASOPHILS % (AUTO) 0 % (0-1); EOSINOPHILS % (AUTO) 0 % (1-7); LYMPHOCYTES % (AUTO) 7 % (22-44); MEAN CORPUSCULAR HEMOGLOBIN 32.9 pg (27.5-34.5); MEAN CORPUSCULAR HGB CONC 33.8 g/dL (33.2-36.2); MEAN PLATELET VOLUME 7.3 fL (7.4-10.4); MONOCYTES % (AUTO) 8 % (2-9); NEUTROPHILS % (AUTO) 86 % (42-75); PLATELET COUNT 247 x10^3/uL (130-400); RED BLOOD COUNT 4.46 x10^6/uL (4.38-5.82); RED CELL DISTRIBUTION WIDTH 12.8 % (9.4-14.8)
[2020-07-20 10:56] LABS: MD NO
[2020-07-20 11:03] LABS: INTERNATIONAL NORMALIZED RATIO 1.05 (0.93-1.1); PROTHROMBIN TIME 11.2 Seconds (9.6-11.5)
[2020-07-20 11:04] LABS: ALANINE AMINOTRANSFERASE 21 U/L (12-78); ALBUMIN 4.2 g/dL (3.4-5.0); ANION GAP 5 mmol/L (5-15); CALCIUM 10.2 mg/dL (8.5-10.1); CHLORIDE 103 mmol/L (98-107); CREATININE 0.88 mg/dL (0.7-1.3)
[2020-07-20 11:06] LABS: ALKALINE PHOSPHATASE 51 U/L (45-117); BILIRUBIN,TOTAL 0.3 mg/dL (0.2-1.0); TOTAL PROTEIN 7.8 g/dL (6.4-8.2)
[~2020-07-23] VITALS: Ht 165.1 cm; Wt 59.0 kg
[~2020-07-23 05:43] MED LIST changes: +DULO60CA7 PO; +FLUT1BLS3 IH
[2020-07-23 06:57] VITALS: BP 131/72
[2020-07-23] MEDS ORDERED: SODIUM CHLORIDE 0.9% 1,000 ML IV SCH (07:00)
[2020-07-23] MEDS ORDERED: CHLORHEXIDINE 15 ML UDC MM ONE (07:00)
[2020-07-23] MEDS ORDERED: MIDAZOLAM 1 MG/ML, 5ML ONE (07:32)
[2020-07-23] MEDS ORDERED: FENTANYL PF 100 MCG/2ML ONE (07:32)
[2020-07-23] MEDS ORDERED: LIDOCAINE GEL 2%, 5ML ONE (11:37)
[2020-07-23] MEDS ORDERED: LIDOCAINE 4% TOPICAL SOLUTION 50 ML ONE (11:37)
== END 2020-07-23 11:00 | disposition home or self-care (01) ==
LOC: OUT 05:43 → EDSTATUS 08:00 → OUT 11:00
PROVIDERS: ATTEND Internal Medicine
DX: J43.9 Emphysema, unspecified (principal); R91.8 Other nonspecific abnormal finding of lung field; G47.00 Insomnia, unspecified; E78.2 Mixed hyperlipidemia; K21.9 Gastro-esophageal reflux disease without esophagitis; M19.90 Unspecified osteoarthritis, unspecified site; G43.909 Migraine, unspecified, not intractable, without status migrainosus; F17.210 Nicotine dependence, cigarettes, uncomplicated; Z98.890 Other specified postprocedural states; Z20.822 Contact with and (suspected) exposure to COVID-19; Z79.899 Other long term (current) drug therapy; Z72.89 Other problems related to lifestyle
CPT/HCPCS: 31624; 31625; 36415; 80053; 85025; 85610; 85730; 87015; 87070; 87102; 87116; 87205; 87206; 88104; 88112; 88305; 93005; 99152; 99153; J2250; J3010; J7030; U0003

== ENCOUNTER 2020-09-20 11:20 | Inpatient (IN) | payer MEDICARE ==
[~2020-09-20] VITALS: Ht 162.6 cm; Wt 60.0 kg
[~2020-09-20 11:20] MED LIST changes: +SULF-23 PO; -SULF1TAB24 PO
--- NOTE | 2020-09-20 12:36 | NUR ---
PT SITTING UP IN BED, RESPIRATIONS EVEN AND UNLABORED ON NC, WHICH HE IS ALWAYS ON. AT BEDSIDE. PT HOB TO LEVEL OF COMFORT. BLANKETS APPLIED. PA STUDENT IN FOR ASSESSMENT AT THIS TIME.
[2020-09-20] MEDS ORDERED: MORPHINE SULFATE 4 MG/ML, 1ML ONE (13:11)
[2020-09-20] MEDS ORDERED: KETOROLAC 30 MG/1 ML ONE (13:11)
[2020-09-20] MEDS ORDERED: KETOROLAC 30 MG/1 ML IVPush ONE (13:30)
[2020-09-20] MEDS ORDERED: SODIUM CHLORIDE FLUSH 10ML SYR IVF ONE (13:30)
[2020-09-20] MEDS ORDERED: MORPHINE SULFATE 4 MG/ML, 1ML IVPush PRN (13:30)
--- NOTE | 2020-09-20 13:37 | NUR ---
IV START, LABS DRAWN AND LABELLED AND SENT, MEDS ADMINISTERED AND PT CURRENTLY TAKEN TO IMAGING. REMAINS IN ROOM.
[2020-09-20 13:58] LABS: BASOPHILS % (AUTO) 0 % (0-1); EOSINOPHILS % (AUTO) 0 % (1-7); LYMPHOCYTES % (AUTO) 13 % (22-44); MEAN CORPUSCULAR HEMOGLOBIN 33.2 pg (27.5-34.5); MEAN CORPUSCULAR HGB CONC 34.5 g/dL (33.2-36.2); MEAN PLATELET VOLUME 7.5 fL (7.4-10.4); MONOCYTES % (AUTO) 10 % (2-9); NEUTROPHILS % (AUTO) 77 % (42-75); PLATELET COUNT 242 x10^3/uL (130-400); RED BLOOD COUNT 4.86 x10^6/uL (4.38-5.82); RED CELL DISTRIBUTION WIDTH 13.1 % (9.4-14.8)
[2020-09-20 14:00] LABS: ALANINE AMINOTRANSFERASE 18 U/L (12-78); ALBUMIN 4.3 g/dL (3.4-5.0); ANION GAP 6 mmol/L (5-15); CALCIUM 9.7 mg/dL (8.5-10.1); CHLORIDE 92 mmol/L (98-107); CREATININE 1.02 mg/dL (0.7-1.3)
[2020-09-20 14:05] LABS: ALKALINE PHOSPHATASE 48 U/L (45-117); BILIRUBIN,TOTAL 0.5 mg/dL (0.2-1.0); MD NO; TOTAL PROTEIN 7.7 g/dL (6.4-8.2); TROPONIN I < 0.015 ng/mL (0.000-0.045)
[2020-09-20] MEDS ORDERED: SODIUM CHLORIDE 0.9% 1,000ML IVBOLUS ONE ×2 (14:30→17:00)
--- NOTE | 2020-09-20 14:56 | NUR ---
PT SITTING UP IN BED, RESPIRATIONS EVEN AND UNLABORED ON NC, WHICH IS PT'S NORMAL ROOM AIR. BLADDER SCANNER UNDERWAY. REPORT TO JANIS SANTILLAN. REMAINS AT BEDSIDE.
--- NOTE | 2020-09-20 15:00 | NUR ---
80ML ON BLADDER SCANNER
--- NOTE | 2020-09-20 15:05 | NUR ---
REPORT FROM ALICIA BRUCE. ASSUMING CARE. PT ATTEMPTING TO VOID FOR UA AND POST VOID RISDUAL CHECK. VSS. CAMPOS.
--- NOTE | 2020-09-20 15:18 | NUR ---
PT UNABLE TO VOID. STRAIGHT CATH PER DR. STEWART. ONLY 100 CC DRAINED OUT.
[2020-09-20 15:35] LABS: MICROSCOPIC INDICATED
--- NOTE | 2020-09-20 15:45 | NUR ---
PT MEDICATED PER EMAR. VSS. JESSICAN.
[2020-09-20] MEDS ORDERED: CEFTRIAXONE 1,000 MG in DEXTROSE 5% 50 ML IVPB ONE (16:00)
[2020-09-20] MEDS ORDERED: VANCOMYCIN PER PHARMACY MC PRN (17:00)
[2020-09-20] MEDS ORDERED: ALBUTEROL HFA 90 MCG/SPRAY INH PRN (17:00)
--- NOTE | 2020-09-20 17:02 | NUR ---
[employer]NA[employer]: PT TO MRI WITH TECH TRANSPORT
--- NOTE | 2020-09-20 17:05 | NUR ---
REPORT CALLED TO ERMIAS BRUCE.
--- NOTE | 2020-09-20 17:12 | NUR ---
PT IN MRI. THEN TO TX TO FLOOR.
[2020-09-20] MEDS ORDERED: GADOTERATE 7.5 MMOL/15ML SYR ONE (17:38)
[2020-09-20] MEDS: CEFTRIAXONE 2 GM in DEXTROSE 5% 50 ML IVPB SCH (17:56)
[2020-09-20] MEDS ORDERED: PHARMACOKINETIC MONITORING MC PRN (18:00)
[2020-09-20 18:20] LABS: HCT (SEDRATE) 46.7 % (39.2-51.8)
[2020-09-20 18:21] VITALS: BP 122/68
[2020-09-20] MEDS ORDERED: BISACODYL 10 MG SUPP PR PRN (19:00)
[2020-09-20] MEDS ORDERED: ONDANSETRON ODT 4 MG PO PRN (19:00)
[2020-09-20] MEDS ORDERED: POLYETHYLENE GLYCOL 17 GM PACKET PO PRN (19:00)
[2020-09-20 19:22] VITALS: BP 129/76
[2020-09-20] MEDS: SODIUM CHLORIDE 0.9% 1,000 ML IV SCH (19:45)
[2020-09-20] MEDS: ATORVASTATIN 40 MG TABLET PO SCH (19:45)
[2020-09-20] MEDS: VANCOMYCIN 1,400 MG in SODIUM CHLORIDE 0.9% 250 ML IV ONE ×2 (19:45→20:06)
[2020-09-20] MEDS: ACETAMINOPHEN 500 MG TABLET PO SCH (19:45)
[2020-09-20] MEDS: METHOCARBAMOL 500 MG TABLET PO PRN (19:48)
[2020-09-20] MEDS: LIDODERM 5% PATCH TD SCH (19:49)
[2020-09-21 02:16] VITALS: BP 117/70
[2020-09-21 05:22] LABS: BASOPHILS % (AUTO) 0 % (0-1); EOSINOPHILS % (AUTO) 1 % (1-7); LYMPHOCYTES % (AUTO) 13 % (22-44); MEAN CORPUSCULAR HEMOGLOBIN 33.6 pg (27.5-34.5); MEAN CORPUSCULAR HGB CONC 34.5 g/dL (33.2-36.2); MEAN PLATELET VOLUME 7.3 fL (7.4-10.4); MONOCYTES % (AUTO) 11 % (2-9); NEUTROPHILS % (AUTO) 75 % (42-75); PLATELET COUNT 184 x10^3/uL (130-400); RED BLOOD COUNT 3.95 x10^6/uL (4.38-5.82)
[2020-09-21] MEDS: ACETAMINOPHEN 500 MG TABLET PO SCH ×4 (05:25→20:04)
[2020-09-21] MEDS: CEFTRIAXONE 2 GM in DEXTROSE 5% 50 ML IVPB SCH (05:25)
[2020-09-21 05:27] LABS: CHLORIDE 104 mmol/L (98-107)
[2020-09-21 05:33] LABS: ALANINE AMINOTRANSFERASE 13 U/L (12-78); ALKALINE PHOSPHATASE 31 U/L (45-117); ANION GAP 4 mmol/L (5-15); BILIRUBIN,TOTAL 0.4 mg/dL (0.2-1.0); CALCIUM 8.2 mg/dL (8.5-10.1); CREATININE 0.37 mg/dL (0.7-1.3); TOTAL PROTEIN 5.8 g/dL (6.4-8.2)
[2020-09-21 05:34] LABS: MD NO
[2020-09-21 06:39] VITALS: BP 118/74
[2020-09-21] MEDS: DULOXETINE 30 MG CAPSULE.DR PO SCH (07:59)
[2020-09-21] MEDS: METHOCARBAMOL 500 MG TABLET PO PRN ×2 (07:59→16:42)
[2020-09-21] MEDS ORDERED: POTASSIUM CHLORIDE 20 MEQ TAB.ER.PRT PO ONE (08:00)
[2020-09-21] MEDS: SENNA/DOCUSATE TABLET PO SCH (08:00)
[2020-09-21] MEDS: (Fluticasone/Umeclidin/Vilanter (Trelegy Ellipta 100-62.5-25 INH SCH (08:00)
[2020-09-21] MEDS: SODIUM CHLORIDE 0.9% 1,000 ML IV SCH (08:20)
[2020-09-21] MEDS: OXYcodone/APAP 5/325MG TABLET PO PRN ×4 (08:20→20:46)
[2020-09-21] MEDS: VANCOMYCIN 1,200 MG in SODIUM CHLORIDE 0.9% 250 ML IV SCH (13:16)
[2020-09-21 13:40] LABS: CLOSTRIDIUM DIFFICILE ANTIGEN NEGATIVE; CLOSTRIDIUM DIFFICILE TOXIN NEGATIVE (Negative)
[2020-09-21] MEDS ORDERED: OMNIPAQUE 350 MG/ML, 100ML BOTTLE ONE (14:15)
[2020-09-21 15:14] VITALS: BP 116/63
[2020-09-21] MEDS: METRONIDAZOLE PMX 500MG/100ML 100 ML IV SCH (17:55)
[2020-09-21] MEDS ORDERED: VANCOMYCIN 1,200 MG in SODIUM CHLORIDE 0.9% 250 ML IV SCH (18:00)
[2020-09-21 18:45] VITALS: BP 138/77
[2020-09-21] MEDS: LIDODERM 5% PATCH TD SCH ×2 (20:00→20:03)
[2020-09-21] MEDS ORDERED: NICOTINE 21 MG/24 HR PATCH.TD24 TD SCH (20:00)
[2020-09-21] MEDS: ATORVASTATIN 40 MG TABLET PO SCH (20:03)
[2020-09-21] MEDS ORDERED: CEFTRIAXONE 1,000 MG in DEXTROSE 5% 50 ML IVPB SCH (21:00)
[2020-09-21] MEDS ORDERED: CEFTRIAXONE 2 GM in DEXTROSE 5% 50 ML IVPB SCH (21:00)
[2020-09-21] MEDS ORDERED: DIPHENOXYLATE/ATROPINE TABLET PO PRN (21:30)
[2020-09-21] MEDS: LACTOBACILLUS CHEW TABLET PO SCH (21:32)
[2020-09-22] MEDS: VANCOMYCIN 1,200 MG in SODIUM CHLORIDE 0.9% 250 ML IV SCH (00:56)
[2020-09-22 01:49] VITALS: BP 123/75
[2020-09-22] MEDS: SODIUM CHLORIDE 0.9% 1,000 ML IV SCH (02:30)
[2020-09-22] MEDS: METRONIDAZOLE PMX 500MG/100ML 100 ML IV SCH ×2 (02:30→09:52)
[2020-09-22] MEDS: OXYcodone/APAP 5/325MG TABLET PO PRN ×3 (02:34→12:03)
[2020-09-22] MEDS: ACETAMINOPHEN 500 MG TABLET PO SCH ×2 (05:20→11:00)
[2020-09-22] MEDS: LACTOBACILLUS CHEW TABLET PO SCH ×2 (05:20→11:00)
[2020-09-22] MEDS: SENNA/DOCUSATE TABLET PO SCH (07:14)
[2020-09-22 07:16] VITALS: BP 106/68
[2020-09-22] MEDS: DULOXETINE 30 MG CAPSULE.DR PO SCH (07:49)
[2020-09-22] MEDS: (Fluticasone/Umeclidin/Vilanter (Trelegy Ellipta 100-62.5-25 INH SCH (09:00)
[2020-09-22] MEDS ORDERED: TAMS-11 PO (10:33)
[2020-09-22] MEDS ORDERED: METR500T PO (10:33)
[2020-09-22] MEDS ORDERED: CEFD300C37 PO (10:33)
== END 2020-09-22 12:15 | disposition home or self-care (01) | DRG 871 ==
LOC: ED 13:33 → EDIP 16:20 → 4NW 18:00 → DCLOUNGE 09-22 12:10
PROVIDERS: ADMIT Internal Medicine; ATTEND Internal Medicine
PROC: 0T9B70Z Drainage of Bladder with Drainage Device, Via Natural or Artificial Opening (ICD-10-PCS; principal; 2020-09-20)
DX: A41.9 Sepsis, unspecified organism (principal); R65.21 Severe sepsis with septic shock; E87.1 Hypo-osmolality and hyponatremia; F11.20 Opioid dependence, uncomplicated; J96.11 Chronic respiratory failure with hypoxia; Z66 Do not resuscitate; E78.5 Hyperlipidemia, unspecified; F17.210 Nicotine dependence, cigarettes, uncomplicated; G89.29 Other chronic pain; I10 Essential (primary) hypertension; I73.9 Peripheral vascular disease, unspecified; J43.9 Emphysema, unspecified; K21.9 Gastro-esophageal reflux disease without esophagitis; M41.9 Scoliosis, unspecified; Z81.1 Family history of alcohol abuse and dependence; Z82.3 Family history of stroke; Z95.820 Peripheral vascular angioplasty status with implants and grafts; Z79.899 Other long term (current) drug therapy; R33.9 Retention of urine, unspecified
CPT/HCPCS: 36415; 71045; 72110; 72158; 74177; 80053; 81001; 83605; 84153; 84484; 85025; 85651; 87040; 87086; 87324; 93005; 96361; 96374; 96375; 99285; G0378; J0696; J1885; J3370; Q9967; A9575; G0103; J2270; J7030; J7050

== ENCOUNTER 2020-09-27 11:50 | Emergency (ER) | payer MEDICARE ==
[~2020-09-27] VITALS: Ht 162.6 cm; Wt 59.4 kg
[~2020-09-27 11:50] MED LIST changes: +METR500T PO; +TAMS-11 PO
[2020-09-27 11:56] VITALS: BP 106/64
[2020-09-27] MEDS ORDERED: HYDROcodone/APAP 5/325 TABLET PO ONE (12:30)
[2020-09-27] MEDS ORDERED: SODIUM CHLORIDE FLUSH 10ML SYR IVF ONE (12:30)
[2020-09-27] MEDS ORDERED: SODIUM CHLORIDE 0.9% 1,000ML IVBOLUS ONE (12:30)
[2020-09-27 12:58] LABS: BASOPHILS % (AUTO) 1 % (0-1); EOSINOPHILS % (AUTO) 1 % (1-7); LYMPHOCYTES % (AUTO) 18 % (22-44); MEAN CORPUSCULAR HEMOGLOBIN 33.7 pg (27.5-34.5); MEAN CORPUSCULAR HGB CONC 34.5 g/dL (33.2-36.2); MEAN PLATELET VOLUME 6.5 fL (7.4-10.4); MONOCYTES % (AUTO) 12 % (2-9); NEUTROPHILS % (AUTO) 69 % (42-75); PLATELET COUNT 268 x10^3/uL (130-400); RED BLOOD COUNT 4.13 x10^6/uL (4.38-5.82); RED CELL DISTRIBUTION WIDTH 13.1 % (9.4-14.8)
[2020-09-27 12:59] LABS: MD NO
[2020-09-27] MEDS ORDERED: HYDROcodone/APAP 5/325 TABLET ONE (13:11)
[2020-09-27 13:15] LABS: ALBUMIN 3.5 g/dL (3.4-5.0); ALKALINE PHOSPHATASE 39 U/L (45-117); ANION GAP 5 mmol/L (5-15); BILIRUBIN,TOTAL 0.2 mg/dL (0.2-1.0); CALCIUM 9.1 mg/dL (8.5-10.1); CHLORIDE 98 mmol/L (98-107); CREATININE 0.76 mg/dL (0.7-1.3); TOTAL PROTEIN 6.5 g/dL (6.4-8.2); TROPONIN I < 0.015 ng/mL (0.000-0.045)
[2020-09-27 13:18] LABS: ALANINE AMINOTRANSFERASE 43 U/L (12-78)
[2020-09-27] MEDS ORDERED: PANT40TA6 PO (14:35)
== END 2020-09-27 15:42 ==
LOC: ED 14:51
DX: M54.5 Low back pain (principal); J44.1 Chronic obstructive pulmonary disease with (acute) exacerbation; R06.00 Dyspnea, unspecified; R00.0 Tachycardia, unspecified; I10 Essential (primary) hypertension; E78.5 Hyperlipidemia, unspecified; I73.9 Peripheral vascular disease, unspecified
CPT/HCPCS: 36415; 71045; 80053; 83605; 83880; 84484; 85025; 87040; 93005; 96360; 99285; J7030; J7512

== ENCOUNTER 2020-10-09 18:42 | Inpatient (IN) | payer MEDICARE ==
[~2020-10-09] VITALS: Ht 162.6 cm; Wt 65.6 kg
--- NOTE | 2020-10-09 19:10 | NUR ---
PT WHEELED TO ROOM 35, AND PLACED ON FULL CR MONITOR. REMAINS ON O2 VIA NC 2.5LPM. WHICH IS EQUAL TO HIS HOME USE AT THE MOMENT. PTS DAUGHTER AT BEDSIDE WITH PT. URBINA TO SEE PT.
[2020-10-09] MEDS ORDERED: SODIUM CHLORIDE 0.9% 1,000ML IVBOLUS ONE (19:30)
[2020-10-09] MEDS ORDERED: CEFTRIAXONE 2 GM in DEXTROSE 5% 50 ML IVPB ONE (19:30)
--- NOTE | 2020-10-09 19:37 | NUR ---
MD TO BEDSIDE, AND ORDERS RECEIVED. 1 LITER NS STARTED, AND ROCEPHIN 2GM STARTED, SEE EMAR. PT BP DROPPED TO 71/46 AND PT PLACED IN TRENDELENBERG AND BP INCREASED. MD AT BEDSIDE, AND TENNIS PLAYER ALSO AT BEDSIDE. BLOOD CULTURES DRAWN BEFORE THE ANTIBIOTICS WERE STARTED. PTS AT BEDSIDE. SIDERAILS UP X2 AND CALL LIGHT WITHIN REACH.
[2020-10-09 19:50] LABS: MEAN CORPUSCULAR HEMOGLOBIN 33.9 pg (27.5-34.5); MEAN CORPUSCULAR HGB CONC 34.1 g/dL (33.2-36.2); MEAN PLATELET VOLUME 7.6 fL (7.4-10.4); PLATELET COUNT 216 x10^3/uL (130-400); RED BLOOD COUNT 4.07 x10^6/uL (4.38-5.82); RED CELL DISTRIBUTION WIDTH 13.6 % (9.4-14.8)
[2020-10-09 19:56] LABS: ALANINE AMINOTRANSFERASE 21 U/L (12-78); ALBUMIN 3.2 g/dL (3.4-5.0); ANION GAP 10 mmol/L (5-15); CALCIUM 8.8 mg/dL (8.5-10.1); CHLORIDE 98 mmol/L (98-107); CREATININE 1.38 mg/dL (0.7-1.3)
[2020-10-09 19:58] LABS: ALKALINE PHOSPHATASE 40 U/L (45-117); BILIRUBIN,TOTAL 0.5 mg/dL (0.2-1.0); TOTAL PROTEIN 6.7 g/dL (6.4-8.2)
[2020-10-09 20:14] LABS: BAND#(MANUAL) 5.02 x10^3/uL; BANDS%(MANUAL) 21 % (0-7); EOS#(MANUAL) 0.24 x10^3/uL (0.0-0.4); EOS% (MANUAL) 1 % (1-7); LYMPH#(MANUAL) 0.72 x10^3/uL (1-3.4); LYMPHS% (MANUAL) 3 % (22-44); MONOS#(MANUAL) 3.11 x10^3/uL (0.3-2.7); MONOS% (MANUAL) 13 % (2-9); SEG#(MANUAL) 14.82 x10^3/uL (1.8-6.8); SEGS% (MANUAL) 62 % (42-75)
[2020-10-09 20:15] LABS: <PLATELET ESTIMATE> ADEQUATE; <PLT MORPHOLOGY> NORMAL PLT MORPH; <RBC MORPHOLOGY> NORMAL
[2020-10-09] MEDS ORDERED: OMNIPAQUE 350 MG/ML, 100ML BOTTLE ONE (20:24)
[2020-10-09] MEDS: LACTATED RINGERS 1,000 ML IV SCH (20:30)
[2020-10-09] MEDS ORDERED: METRONIDAZOLE PMX 500MG/100ML 100 ML IV ONE (20:30)
[2020-10-09 20:59] LABS: MICROSCOPIC NOT IND
--- NOTE | 2020-10-09 21:06 | NUR ---
PT TAKEN TO CT SCAN. AFTER PT UP TO BATHROOM AND PROVIDED URINE SAMPLE.
--- NOTE | 2020-10-09 21:20 | NUR ---
PT RESTING COMFORTABLY, AND WAS UP TO THE COMMODE TO HAVE A BOWEL MOVEMENT WITHOUT INCIDENT. PT WAS WINDED AND LABORED BREATHING AFTER HE FINISHED, AND PT KEPT ON HIS O2 NC 2.5LPM. AND IT TOOK PT APPROXIMATELY 5 MIN TO REGULATE HIS BREATHING BACK TO NORMAL FOR HIM. PT REMAINS ON CR MONITOR.
[2020-10-09] MEDS ORDERED: METRONIDAZOLE PMX 500MG/100ML 100 ML ONE (21:23)
[2020-10-09] MEDS ORDERED: ACETAMINOPHEN 325 MG TABLET PO PRN (21:30)
[2020-10-09] MEDS ORDERED: OXYcodone/APAP 5/325MG TABLET PO PRN (21:30)
[2020-10-09] MEDS ORDERED: FAMOTIDINE 20 MG TABLET PO SCH (21:30)
[2020-10-09] MEDS ORDERED: OXYcodone IR 5MG TABLET PO PRN (21:30)
[2020-10-09] MEDS ORDERED: MELATONIN 5 MG TABLET PO PRN (21:30)
[2020-10-09] MEDS ORDERED: POLYETHYLENE GLYCOL 17 GM PACKET PO PRN (21:30)
[2020-10-09] MEDS: ATORVASTATIN 40 MG TABLET PO SCH (21:30)
[2020-10-09] MEDS ORDERED: TEMAZEPAM 15 MG CAPSULE PO PRN (21:30)
[2020-10-09] MEDS ORDERED: DOCUSATE 100 MG CAPSULE PO PRN (21:30)
[2020-10-09] MEDS ORDERED: hydrALAzine 20 MG/ML, 1ML IVPush PRN (21:30)
[2020-10-09] MEDS ORDERED: BISACODYL 10 MG SUPP PR PRN (21:30)
[2020-10-09] MEDS ORDERED: LORazepam 2 MG/ML, 1ML IVPush PRN (21:30)
[2020-10-09] MEDS ORDERED: ALBUTEROL HFA 90 MCG/SPRAY INH PRN (21:30)
--- NOTE | 2020-10-09 21:53 | NUR ---
REPORT CALLED TO BISI BRUCE. WILL KEEP PT IN THE ER UNTIL THE CT IS READ AND THE ER DOCTOR ASSESES IT. FLOOR RN AWARE AND COMPUTER SUPPORT TECHNICIAN IN THE ER AWARE.
[2020-10-09] MEDS ORDERED: PIPERACILLIN IV SCH (22:11)
[2020-10-09] MEDS ORDERED: TAZO IV SCH (22:11)
[2020-10-09] MEDS ORDERED: ACETAMINOPHEN 500 MG TABLET ONE (22:26)
[2020-10-09] MEDS: ACETAMINOPHEN 500 MG TABLET PO SCH (22:29)
[2020-10-09 23:02] VITALS: BP 113/70
[2020-10-09] MEDS ORDERED: PANTOPRAZOLE MC SCH (23:30)
[2020-10-09] MEDS ORDERED: ACETAMINOPHEN MC SCH (23:30)
[2020-10-09] MEDS ORDERED: OXYCODONE MC SCH (23:30)
[2020-10-09] MEDS ORDERED: FAMOTIDINE MC SCH (23:30)
[2020-10-09] MEDS: PIPERACILLIN/TAZO 3.375 GM in DEXTROSE 5% 50 ML IV SCH (23:50)
[2020-10-09] MEDS: SODIUM CHLORIDE 0.9% 1,000 ML IV SCH (23:50)
[2020-10-10] MEDS ORDERED: ACETAMINOPHEN 325 MG TABLET PO PRN (00:30)
[2020-10-10] MEDS: OXYcodone/APAP 5/325MG TABLET PO PRN ×2 (00:30→13:26)
[2020-10-10] MEDS: LACTATED RINGERS 1,000 ML IV SCH ×3 (00:30→11:00)
[2020-10-10 02:01] LABS: CLOSTRIDIUM DIFFICILE ANTIGEN POSITIVE; CLOSTRIDIUM DIFFICILE TOXIN POSITIVE (Negative)
[2020-10-10] MEDS ORDERED: METRONIDAZOLE PMX 500MG/100ML 100 ML IV SCH (03:30)
[2020-10-10] MEDS ORDERED: VANCOMYCIN 50 MG/ML ORAL SUSP PO SCH (03:30)
[2020-10-10] MEDS: VANCOMYCIN 50 MG/ML ORAL SUSP PO SCH ×4 (03:34→21:58)
[2020-10-10] MEDS ORDERED: SUCCINYLCHOLINE 20 MG/ML, 10ML ONE (04:33)
[2020-10-10] MEDS ORDERED: ONDANSETRON 2MG/ML, 2ML ONE (04:33)
[2020-10-10] MEDS ORDERED: ROCURONIUM 10 MG/ML,10ML ONE (04:33)
[2020-10-10] MEDS ORDERED: DEXAMETHASONE 4 MG/ML, 1ML ONE (04:33)
[2020-10-10] MEDS ORDERED: MIDAZOLAM 1 MG/ML, 2ML ONE (04:36)
[2020-10-10] MEDS ORDERED: FENTANYL PF 250 MCG/5ML ONE (04:36)
[2020-10-10 05:00] LABS: ANION GAP 6 mmol/L (5-15); CALCIUM 8.4 mg/dL (8.5-10.1); CHLORIDE 105 mmol/L (98-107); CREATININE 0.77 mg/dL (0.7-1.3)
[2020-10-10] MEDS: PIPERACILLIN/TAZO 3.375 GM in DEXTROSE 5% 50 ML IV SCH ×2 (05:00→11:00)
[2020-10-10] MEDS: SODIUM CHLORIDE 0.9% 1,000 ML IV SCH (06:30)
[2020-10-10] MEDS ORDERED: PROPOFOL 100 ML IV ONE (08:02)
[2020-10-10 08:30] LABS: BASOPHILS % (AUTO) 0 % (0-1); EOSINOPHILS % (AUTO) 0 % (1-7); LYMPHOCYTES % (AUTO) 3 % (22-44); MEAN CORPUSCULAR HEMOGLOBIN 33.3 pg (27.5-34.5); MEAN CORPUSCULAR HGB CONC 32.5 g/dL (33.2-36.2); MEAN PLATELET VOLUME 7.4 fL (7.4-10.4); MONOCYTES % (AUTO) 13 % (2-9); NEUTROPHILS % (AUTO) 84 % (42-75); PLATELET COUNT 130 x10^3/uL (130-400); RED BLOOD COUNT 3.15 x10^6/uL (4.38-5.82); RED CELL DISTRIBUTION WIDTH 13.9 % (9.4-14.8)
[2020-10-10] MEDS ORDERED: FAMOTIDINE 20 MG/2 ML IV SCH (09:00)
[2020-10-10] MEDS ORDERED: LISINOPRIL 10 MG TABLET PO SCH (09:00)
[2020-10-10] MEDS ORDERED: PANTOPRAZOLE 40MG TABLET PO SCH (09:00)
[2020-10-10] MEDS ORDERED: ENOXAPARIN 40 MG/0.4 ML SQ SCH (09:00)
[2020-10-10] MEDS: TAMSULOSIN 0.4 MG CAP.ER.24H PO SCH (09:00)
[2020-10-10] MEDS ORDERED: LIDOCAINE-MPF 1%, 2ML ENDO PRN (09:00)
[2020-10-10] MEDS ORDERED: PHARMACY MAY ADJ FOR RENAL FX MC SCH (09:00)
[2020-10-10] MEDS ORDERED: TAMSULOSIN 0.4 MG CAP.ER.24H PO SCH (09:00)
[2020-10-10] MEDS: DULOXETINE 30 MG CAPSULE.DR PO SCH (09:00)
[2020-10-10] MEDS: HYDROCHLOROTHIAZIDE 12.5 MG CAPSULE PO SCH (09:00)
[2020-10-10] MEDS ORDERED: PROPOFOL 100 ML IV PRN (09:00)
[2020-10-10] MEDS ORDERED: CLOPIDOGREL 75 MG TABLET PO SCH (09:00)
[2020-10-10] MEDS ORDERED: Fluticasone/Umeclidin/Vilanter (Trelegy Ellipta 100-62.5-25 INH SCH (09:00)
[2020-10-10] MEDS ORDERED: FENTANYL PF 100 MCG/2ML ONE (09:08)
[2020-10-10] MEDS: FENTANYL PF 100 MCG/2ML IVPush PRN ×5 (09:11→13:13)
[2020-10-10] MEDS: BUDESONIDE 0.5 MG/2 ML INHA INH SCH ×3 (10:10→21:30)
[2020-10-10] MEDS: METRONIDAZOLE PMX 500MG/100ML 100 ML IV SCH ×3 (10:23→22:03)
[2020-10-10] MEDS: ACETAMINOPHEN 500 MG TABLET PO SCH ×4 (11:00→20:41)
[2020-10-10] MEDS: HYDROmorphone 2 MG/ML, 1ML IVPush PRN ×3 (13:42→21:07)
[2020-10-10] MEDS: OxyconTIN ER 15 MG TAB.ER PO SCH (14:45)
[2020-10-10 18:26] VITALS: BP 115/68
[2020-10-10] MEDS: OXYcodone IR 5MG TABLET PO PRN (18:42)
[2020-10-10] MEDS: ATORVASTATIN 40 MG TABLET PO SCH (20:41)
[2020-10-10 20:47] VITALS: BP 146/74
[2020-10-10] MEDS: ONDANSETRON 2MG/ML, 2ML IVPush PRN (21:12)
[2020-10-10] MEDS ORDERED: OXYcodone/APAP 5/325MG TABLET PO PRN (21:30)
[2020-10-11 00:10] VITALS: BP 147/90
[2020-10-11] MEDS: HYDROmorphone 2 MG/ML, 1ML IVPush PRN ×7 (00:33→21:47)
[2020-10-11] MEDS: ACETAMINOPHEN 500 MG TABLET PO SCH ×4 (02:29→20:24)
[2020-10-11] MEDS: OxyconTIN ER 15 MG TAB.ER PO SCH ×2 (02:29→15:11)
[2020-10-11] MEDS: VANCOMYCIN 50 MG/ML ORAL SUSP PO SCH ×4 (03:43→21:46)
[2020-10-11] MEDS: METRONIDAZOLE PMX 500MG/100ML 100 ML IV SCH ×4 (03:44→21:48)
[2020-10-11 03:47] VITALS: BP 153/77
[2020-10-11 05:42] LABS: BASOPHILS % (AUTO) 0 % (0-1); EOSINOPHILS % (AUTO) 0 % (1-7); LYMPHOCYTES % (AUTO) 6 % (22-44); MEAN CORPUSCULAR HEMOGLOBIN 33.7 pg (27.5-34.5); MEAN CORPUSCULAR HGB CONC 33.5 g/dL (33.2-36.2); MEAN PLATELET VOLUME 7.6 fL (7.4-10.4); MONOCYTES % (AUTO) 11 % (2-9); NEUTROPHILS % (AUTO) 83 % (42-75); PLATELET COUNT 167 x10^3/uL (130-400); RED BLOOD COUNT 3.34 x10^6/uL (4.38-5.82); RED CELL DISTRIBUTION WIDTH 13.3 % (9.4-14.8)
[2020-10-11 05:50] LABS: ALANINE AMINOTRANSFERASE 22 U/L (12-78); ALBUMIN 2.5 g/dL (3.4-5.0); ANION GAP 7 mmol/L (5-15); CALCIUM 8.5 mg/dL (8.5-10.1); CHLORIDE 105 mmol/L (98-107)
[2020-10-11 05:52] LABS: ALKALINE PHOSPHATASE 41 U/L (45-117); BILIRUBIN,TOTAL 0.3 mg/dL (0.2-1.0); TOTAL PROTEIN 5.8 g/dL (6.4-8.2)
[2020-10-11 07:20] VITALS: BP 126/79
[2020-10-11] MEDS: DULOXETINE 30 MG CAPSULE.DR PO SCH (08:24)
[2020-10-11] MEDS: HYDROCHLOROTHIAZIDE 12.5 MG CAPSULE PO SCH (08:24)
[2020-10-11] MEDS: TAMSULOSIN 0.4 MG CAP.ER.24H PO SCH (08:25)
[2020-10-11] MEDS: ENOXAPARIN 40 MG/0.4 ML SQ SCH (08:26)
[2020-10-11] MEDS: BUDESONIDE 0.5 MG/2 ML INHA INH SCH (09:00)
[2020-10-11] MEDS ORDERED: LISINOPRIL 10 MG TABLET PO SCH (11:00)
[2020-10-11 13:45] VITALS: BP 153/67
[2020-10-11] MEDS ORDERED: SUCCINYLCHOLINE 20 MG/ML, 10ML ONE (16:22)
[2020-10-11] MEDS ORDERED: PROPOFOL 10 MG/ML, 20ML ONE (16:22)
[2020-10-11] MEDS ORDERED: ONDANSETRON 2MG/ML, 2ML ONE (16:22)
[2020-10-11] MEDS ORDERED: ROCURONIUM 10MG/ML,5ML ONE (16:22)
[2020-10-11] MEDS ORDERED: DEXAMETHASONE 4 MG/ML, 1ML ONE (16:22)
[2020-10-11 19:16] VITALS: BP 120/62
[2020-10-11] MEDS: ATORVASTATIN 40 MG TABLET PO SCH (20:24)
[2020-10-11] MEDS: OXYcodone IR 5MG TABLET PO PRN (20:24)
[2020-10-11] MEDS: ONDANSETRON 2MG/ML, 2ML IVPush PRN (20:48)
[2020-10-12 02:14] VITALS: BP 105/61
[2020-10-12] MEDS: OxyconTIN ER 15 MG TAB.ER PO SCH ×2 (04:07→18:28)
[2020-10-12] MEDS: METRONIDAZOLE PMX 500MG/100ML 100 ML IV SCH ×3 (04:08→18:28)
[2020-10-12] MEDS: ACETAMINOPHEN 500 MG TABLET PO SCH ×3 (04:08→18:28)
[2020-10-12] MEDS: VANCOMYCIN 50 MG/ML ORAL SUSP PO SCH ×3 (04:08→18:28)
[2020-10-12 05:57] LABS: BASOPHILS % (AUTO) 0 % (0-1); EOSINOPHILS % (AUTO) 0 % (1-7); LYMPHOCYTES % (AUTO) 6 % (22-44); MEAN CORPUSCULAR HEMOGLOBIN 33.9 pg (27.5-34.5); MEAN CORPUSCULAR HGB CONC 34.3 g/dL (33.2-36.2); MEAN PLATELET VOLUME 7.7 fL (7.4-10.4); MONOCYTES % (AUTO) 10 % (2-9); NEUTROPHILS % (AUTO) 85 % (42-75); PLATELET COUNT 174 x10^3/uL (130-400); RED BLOOD COUNT 3.02 x10^6/uL (4.38-5.82); RED CELL DISTRIBUTION WIDTH 13.3 % (9.4-14.8)
[2020-10-12 06:11] LABS: ALBUMIN 2.2 g/dL (3.4-5.0); ANION GAP 5 mmol/L (5-15); CALCIUM 8.5 mg/dL (8.5-10.1); CHLORIDE 98 mmol/L (98-107); CREATININE 0.56 mg/dL (0.7-1.3)
[2020-10-12 07:59] VITALS: BP 150/74
[2020-10-12] MEDS: HYDROmorphone 2 MG/ML, 1ML IVPush PRN ×3 (08:00→20:43)
[2020-10-12] MEDS: ENOXAPARIN 40 MG/0.4 ML SQ SCH (10:25)
[2020-10-12] MEDS: VANCOMYCIN 500 MG PR SCH ×2 (10:25→18:28)
[2020-10-12] MEDS: LISINOPRIL 10 MG TABLET PO SCH (10:26)
[2020-10-12] MEDS: HYDROCHLOROTHIAZIDE 12.5 MG CAPSULE PO SCH (10:26)
[2020-10-12] MEDS: DULOXETINE 30 MG CAPSULE.DR PO SCH (10:26)
[2020-10-12] MEDS: TAMSULOSIN 0.4 MG CAP.ER.24H PO SCH (10:26)
[2020-10-12] MEDS: OXYcodone IR 5MG TABLET PO PRN ×3 (10:27→21:50)
[2020-10-12] MEDS: TRELEGY 100 MCG HOMEINH SCH (10:29)
[2020-10-12 12:34] VITALS: BP 135/69
[2020-10-12 20:09] VITALS: BP 133/69
[2020-10-12] MEDS: ATORVASTATIN 40 MG TABLET PO SCH (20:43)
[2020-10-12] MEDS: ALUMINUM/MAG/SIMETHICONE 30 ML UDC PO PRN (20:43)
[2020-10-13] MEDS: HYDROmorphone 2 MG/ML, 1ML IVPush PRN ×2 (00:30→10:55)
[2020-10-13] MEDS: ACETAMINOPHEN 500 MG TABLET PO SCH ×2 (00:31→06:31)
[2020-10-13] MEDS: VANCOMYCIN 50 MG/ML ORAL SUSP PO SCH ×4 (00:31→20:58)
[2020-10-13] MEDS: METRONIDAZOLE PMX 500MG/100ML 100 ML IV SCH ×4 (00:31→18:45)
[2020-10-13] MEDS: VANCOMYCIN 500 MG PR SCH ×5 (00:33→20:06)
[2020-10-13 02:14] VITALS: BP 121/72
[2020-10-13] MEDS: OXYcodone IR 5MG TABLET PO PRN ×2 (05:09→22:25)
[2020-10-13 05:56] LABS: MEAN CORPUSCULAR HEMOGLOBIN 33.4 pg (27.5-34.5); MEAN CORPUSCULAR HGB CONC 34.4 g/dL (33.2-36.2); MEAN PLATELET VOLUME 7.6 fL (7.4-10.4); PLATELET COUNT 217 x10^3/uL (130-400); RED CELL DISTRIBUTION WIDTH 12.8 % (9.4-14.8)
[2020-10-13 06:14] LABS: ALBUMIN 2.6 g/dL (3.4-5.0); ANION GAP 5 mmol/L (5-15); CALCIUM 8.3 mg/dL (8.5-10.1); CHLORIDE 88 mmol/L (98-107)
[2020-10-13] MEDS: OxyconTIN ER 15 MG TAB.ER PO SCH ×2 (06:31→18:50)
[2020-10-13] MEDS: ALUMINUM/MAG/SIMETHICONE 30 ML UDC PO PRN (06:40)
[2020-10-13 06:43] LABS: ALANINE AMINOTRANSFERASE 20 U/L (12-78); ALKALINE PHOSPHATASE 36 U/L (45-117); BILIRUBIN,TOTAL 0.4 mg/dL (0.2-1.0); CREATININE 0.36 mg/dL (0.7-1.3); TOTAL PROTEIN 5.5 g/dL (6.4-8.2)
[2020-10-13 07:24] LABS: BAND#(MANUAL) 0.71 x10^3/uL; BANDS%(MANUAL) 5 % (0-7); EOS#(MANUAL) 0.14 x10^3/uL (0.0-0.4); EOS% (MANUAL) 1 % (1-7); LYMPH#(MANUAL) 0.71 x10^3/uL (1-3.4); LYMPHS% (MANUAL) 5 % (22-44); METAMYELOCYTES# (MANUAL) 0.28 x10^3/uL (0-0); METAMYELOCYTES% (MANUAL) 2 % (0-1); MONOS#(MANUAL) 0.57 x10^3/uL (0.3-2.7); MONOS% (MANUAL) 4 % (2-9); REACTIVE LYMPHS # (MANUAL) 0.14 x10^3/uL (0-0); REACTIVE LYMPHS % (MANUAL) 1 % (0-0); SEG#(MANUAL) 11.64 x10^3/uL (1.8-6.8); SEGS% (MANUAL) 82 % (42-75)
[2020-10-13 07:25] LABS: <PLATELET ESTIMATE> ADEQUATE; <PLT MORPHOLOGY> NORMAL PLT MORPH; <RBC MORPHOLOGY> NORMAL
[2020-10-13] MEDS ORDERED: POTASSIUM PHOSPHATE 44 MEQ in SODIUM CHLORIDE 0.9% 500 ML IV ONE (07:30)
[2020-10-13] MEDS ORDERED: MAGNESIUM SULFATE PMX 2GM/50ML 50 ML IV ONE (07:30)
[2020-10-13 08:22] VITALS: BP 111/71
[2020-10-13] MEDS: POTASSIUM CHLORIDE 20 MEQ PACKET PO SCH ×3 (08:25→17:44)
[2020-10-13] MEDS: SODIUM CHLORIDE 0.9% 1,000 ML IV SCH (08:25)
[2020-10-13] MEDS: TRELEGY 100 MCG HOMEINH SCH (09:00)
[2020-10-13] MEDS: ONDANSETRON 2MG/ML, 2ML IVPush PRN (10:10)
[2020-10-13] MEDS: ENOXAPARIN 40 MG/0.4 ML SQ SCH (10:11)
[2020-10-13] MEDS: TAMSULOSIN 0.4 MG CAP.ER.24H PO SCH (10:57)
[2020-10-13] MEDS: HYDROCHLOROTHIAZIDE 12.5 MG CAPSULE PO SCH (10:57)
[2020-10-13] MEDS: LISINOPRIL 10 MG TABLET PO SCH (10:58)
[2020-10-13] MEDS: LACTOBACILLUS CHEW TABLET PO SCH ×3 (10:58→20:59)
[2020-10-13] MEDS: DULOXETINE 30 MG CAPSULE.DR PO SCH (11:09)
[2020-10-13] MEDS: ACETAMINOPHEN 325 MG TABLET PO SCH ×2 (12:56→18:45)
[2020-10-13 13:49] VITALS: BP 95/61
[2020-10-13 20:21] VITALS: BP 120/75
[2020-10-13] MEDS: ATORVASTATIN 40 MG TABLET PO SCH (20:59)
[2020-10-13] MEDS: ALBUTEROL SULFATE 2.5 MG/3 ML NPPB PRN (22:33)
[2020-10-14] MEDS: METRONIDAZOLE PMX 500MG/100ML 100 ML IV SCH ×4 (00:35→19:26)
[2020-10-14 00:42] VITALS: BP 98/63
[2020-10-14] MEDS: ACETAMINOPHEN 325 MG TABLET PO SCH ×4 (00:45→18:36)
[2020-10-14] MEDS: OXYcodone IR 5MG TABLET PO PRN ×4 (02:26→21:35)
[2020-10-14] MEDS: VANCOMYCIN 500 MG PR SCH ×4 (03:17→22:15)
[2020-10-14] MEDS: VANCOMYCIN 50 MG/ML ORAL SUSP PO SCH ×4 (03:17→22:21)
[2020-10-14 04:48] LABS: BASOPHILS % (AUTO) 0 % (0-1); EOSINOPHILS % (AUTO) 0 % (1-7); LYMPHOCYTES % (AUTO) 3 % (22-44); MEAN CORPUSCULAR HEMOGLOBIN 33.3 pg (27.5-34.5); MEAN CORPUSCULAR HGB CONC 34.7 g/dL (33.2-36.2); MEAN PLATELET VOLUME 7.1 fL (7.4-10.4); MONOCYTES % (AUTO) 4 % (2-9); NEUTROPHILS % (AUTO) 93 % (42-75); PLATELET COUNT 237 x10^3/uL (130-400); RED BLOOD COUNT 3.43 x10^6/uL (4.38-5.82); RED CELL DISTRIBUTION WIDTH 13.1 % (9.4-14.8)
[2020-10-14 05:00] LABS: ALBUMIN 2.2 g/dL (3.4-5.0); ANION GAP 8 mmol/L (5-15); CALCIUM 7.8 mg/dL (8.5-10.1); CHLORIDE 89 mmol/L (98-107)
[2020-10-14 05:04] LABS: ALANINE AMINOTRANSFERASE 20 U/L (12-78); ALKALINE PHOSPHATASE 29 U/L (45-117); BILIRUBIN,TOTAL 0.4 mg/dL (0.2-1.0); CREATININE 0.45 mg/dL (0.7-1.3); TOTAL PROTEIN 4.9 g/dL (6.4-8.2)
[2020-10-14] MEDS: LACTOBACILLUS CHEW TABLET PO SCH ×4 (06:15→21:35)
[2020-10-14] MEDS: OxyconTIN ER 15 MG TAB.ER PO SCH ×2 (06:15→18:36)
[2020-10-14] MEDS: TRELEGY 100 MCG HOMEINH SCH (07:00)
[2020-10-14 07:08] VITALS: BP 124/71
[2020-10-14] MEDS: DULOXETINE 30 MG CAPSULE.DR PO SCH (09:09)
[2020-10-14] MEDS: TAMSULOSIN 0.4 MG CAP.ER.24H PO SCH (09:09)
[2020-10-14] MEDS: LISINOPRIL 10 MG TABLET PO SCH (09:09)
[2020-10-14] MEDS: HYDROCHLOROTHIAZIDE 12.5 MG CAPSULE PO SCH (09:09)
[2020-10-14] MEDS: ENOXAPARIN 40 MG/0.4 ML SQ SCH (09:10)
[2020-10-14 09:24] VITALS: BP 128/72
[2020-10-14] MEDS ORDERED: OMNIPAQUE 350 MG/ML, 100ML BOTTLE ONE (13:00)
[2020-10-14 13:32] VITALS: BP 131/76
[2020-10-14] MEDS: SODIUM CHLORIDE 0.9% 1,000 ML IV SCH (13:55)
[2020-10-14] MEDS: ALBUTEROL SULFATE 2.5 MG/3 ML NPPB PRN (15:14)
[2020-10-14] MEDS: PIPERACILLIN/TAZO 3.375 GM in DEXTROSE 5% 50 ML IV SCH (18:29)
[2020-10-14 19:42] VITALS: BP 106/68
[2020-10-14] MEDS: ATORVASTATIN 40 MG TABLET PO SCH (21:33)
[2020-10-15] MEDS: PIPERACILLIN/TAZO 3.375 GM in DEXTROSE 5% 50 ML IV SCH ×4 (00:43→18:35)
[2020-10-15] MEDS: ACETAMINOPHEN 325 MG TABLET PO SCH ×4 (00:46→18:35)
[2020-10-15] MEDS: METRONIDAZOLE PMX 500MG/100ML 100 ML IV SCH ×4 (01:28→17:27)
[2020-10-15 02:46] VITALS: BP 137/79
[2020-10-15] MEDS: VANCOMYCIN 50 MG/ML ORAL SUSP PO SCH ×4 (04:15→22:28)
[2020-10-15] MEDS: VANCOMYCIN 500 MG PR SCH ×4 (04:15→22:28)
[2020-10-15 06:01] LABS: BASOPHILS % (AUTO) 0 % (0-1); EOSINOPHILS % (AUTO) 1 % (1-7); LYMPHOCYTES % (AUTO) 6 % (22-44); MEAN CORPUSCULAR HGB CONC 35.3 g/dL (33.2-36.2); MEAN PLATELET VOLUME 7.4 fL (7.4-10.4); MONOCYTES % (AUTO) 7 % (2-9); NEUTROPHILS % (AUTO) 86 % (42-75); PLATELET COUNT 222 x10^3/uL (130-400); RED CELL DISTRIBUTION WIDTH 13.3 % (9.4-14.8)
[2020-10-15 06:08] LABS: ANION GAP 10 mmol/L (5-15); CALCIUM 8.2 mg/dL (8.5-10.1); CHLORIDE 91 mmol/L (98-107); CREATININE 0.31 mg/dL (0.7-1.3)
[2020-10-15] MEDS: LACTOBACILLUS CHEW TABLET PO SCH ×4 (06:25→20:22)
[2020-10-15] MEDS: OxyconTIN ER 15 MG TAB.ER PO SCH ×2 (06:25→18:35)
[2020-10-15 07:05] VITALS: BP 120/69
[2020-10-15] MEDS: OXYcodone IR 5MG TABLET PO PRN (08:52)
[2020-10-15] MEDS: DULOXETINE 30 MG CAPSULE.DR PO SCH (08:53)
[2020-10-15] MEDS: HYDROCHLOROTHIAZIDE 12.5 MG CAPSULE PO SCH (08:53)
[2020-10-15] MEDS: TAMSULOSIN 0.4 MG CAP.ER.24H PO SCH (08:53)
[2020-10-15] MEDS: LISINOPRIL 10 MG TABLET PO SCH (08:54)
[2020-10-15] MEDS: TRELEGY 100 MCG HOMEINH SCH (09:00)
[2020-10-15] MEDS: SODIUM CHLORIDE 0.9% 1,000 ML IV SCH (09:00)
[2020-10-15 14:09] VITALS: BP 102/63
[2020-10-15] MEDS ORDERED: POTASSIUM CHLORIDE 40 MEQ in SODIUM CHLORIDE 0.9% 500 ML IV ONE (18:30)
[2020-10-15] MEDS: ATORVASTATIN 40 MG TABLET PO SCH (20:22)
[2020-10-15 20:47] VITALS: BP 112/70
[2020-10-16] MEDS: PIPERACILLIN/TAZO 3.375 GM in DEXTROSE 5% 50 ML IV SCH ×4 (00:17→18:38)
[2020-10-16] MEDS: ACETAMINOPHEN 325 MG TABLET PO SCH ×6 (00:17→23:16)
[2020-10-16] MEDS: OXYcodone IR 5MG TABLET PO PRN ×4 (00:21→19:17)
[2020-10-16] MEDS: METRONIDAZOLE PMX 500MG/100ML 100 ML IV SCH ×4 (01:20→19:16)
[2020-10-16 02:24] VITALS: BP 96/62
[2020-10-16] MEDS: VANCOMYCIN 50 MG/ML ORAL SUSP PO SCH ×4 (04:15→23:16)
[2020-10-16] MEDS: VANCOMYCIN 500 MG PR SCH ×4 (04:16→23:17)
[2020-10-16] MEDS: OxyconTIN ER 15 MG TAB.ER PO SCH ×2 (06:05→18:38)
[2020-10-16] MEDS: LACTOBACILLUS CHEW TABLET PO SCH ×4 (06:05→23:17)
[2020-10-16 07:20] VITALS: BP 117/69
[2020-10-16] MEDS ORDERED: POTASSIUM CHLORIDE 40 MEQ in SODIUM CHLORIDE 0.9% 1,000 ML IV SCH (07:30)
[2020-10-16] MEDS: TAMSULOSIN 0.4 MG CAP.ER.24H PO SCH (09:00)
[2020-10-16] MEDS: TRELEGY 100 MCG HOMEINH SCH (09:00)
[2020-10-16] MEDS: HYDROCHLOROTHIAZIDE 12.5 MG CAPSULE PO SCH (10:01)
[2020-10-16] MEDS: LISINOPRIL 10 MG TABLET PO SCH (10:02)
[2020-10-16] MEDS: DULOXETINE 30 MG CAPSULE.DR PO SCH (10:02)
[2020-10-16 13:35] VITALS: BP 120/67
[2020-10-16] MEDS ORDERED: PHENOL THROAT SPRAY BOTTLE MM PRN (15:30)
[2020-10-16 20:47] VITALS: BP 108/66
[2020-10-16] MEDS: ATORVASTATIN 40 MG TABLET PO SCH (23:17)
[2020-10-17] MEDS: ACETAMINOPHEN 325 MG TABLET PO SCH ×4 (00:30→18:30)
[2020-10-17] MEDS: PIPERACILLIN/TAZO 3.375 GM in DEXTROSE 5% 50 ML IV SCH ×4 (01:07→18:33)
[2020-10-17 01:37] VITALS: BP 123/73
[2020-10-17] MEDS: METRONIDAZOLE PMX 500MG/100ML 100 ML IV SCH ×4 (01:49→18:30)
[2020-10-17] MEDS: VANCOMYCIN 500 MG PR SCH ×4 (05:18→22:58)
[2020-10-17] MEDS: VANCOMYCIN 50 MG/ML ORAL SUSP PO SCH ×4 (05:18→22:57)
[2020-10-17] MEDS: LACTOBACILLUS CHEW TABLET PO SCH ×4 (05:21→21:27)
[2020-10-17 06:11] LABS: BASOPHILS % (AUTO) 0 % (0-1); EOSINOPHILS % (AUTO) 2 % (1-7); LYMPHOCYTES % (AUTO) 8 % (22-44); MEAN CORPUSCULAR HEMOGLOBIN 33.4 pg (27.5-34.5); MEAN CORPUSCULAR HGB CONC 33.8 g/dL (33.2-36.2); MEAN PLATELET VOLUME 6.9 fL (7.4-10.4); MONOCYTES % (AUTO) 8 % (2-9); NEUTROPHILS % (AUTO) 81 % (42-75); PLATELET COUNT 305 x10^3/uL (130-400); RED BLOOD COUNT 3.24 x10^6/uL (4.38-5.82); RED CELL DISTRIBUTION WIDTH 12.7 % (9.4-14.8)
[2020-10-17 06:22] LABS: CHLORIDE 96 mmol/L (98-107)
[2020-10-17 06:28] LABS: ALANINE AMINOTRANSFERASE 14 U/L (12-78); ALKALINE PHOSPHATASE 33 U/L (45-117); ANION GAP 8 mmol/L (5-15); BILIRUBIN,TOTAL 0.4 mg/dL (0.2-1.0); CALCIUM 8.1 mg/dL (8.5-10.1); CREATININE 0.37 mg/dL (0.7-1.3)
[2020-10-17] MEDS: OxyconTIN ER 15 MG TAB.ER PO SCH ×2 (06:50→18:30)
[2020-10-17 07:19] VITALS: BP 113/71
[2020-10-17] MEDS: HYDROCHLOROTHIAZIDE 12.5 MG CAPSULE PO SCH (08:40)
[2020-10-17] MEDS: DULOXETINE 30 MG CAPSULE.DR PO SCH (08:40)
[2020-10-17] MEDS: TAMSULOSIN 0.4 MG CAP.ER.24H PO SCH (08:40)
[2020-10-17] MEDS: TRELEGY 100 MCG HOMEINH SCH (08:41)
[2020-10-17] MEDS: LISINOPRIL 10 MG TABLET PO SCH (08:41)
[2020-10-17 13:01] VITALS: BP 124/71
[2020-10-17 18:33] VITALS: BP 123/75
[2020-10-17] MEDS: ATORVASTATIN 40 MG TABLET PO SCH (21:26)
[2020-10-18] MEDS: PIPERACILLIN/TAZO 3.375 GM in DEXTROSE 5% 50 ML IV SCH ×4 (01:29→20:32)
[2020-10-18] MEDS: ACETAMINOPHEN 325 MG TABLET PO SCH ×4 (01:34→20:32)
[2020-10-18] MEDS: METRONIDAZOLE PMX 500MG/100ML 100 ML IV SCH ×4 (02:09→21:38)
[2020-10-18 02:25] VITALS: BP 117/69
[2020-10-18] MEDS: VANCOMYCIN 50 MG/ML ORAL SUSP PO SCH ×4 (04:42→23:06)
[2020-10-18] MEDS: VANCOMYCIN 500 MG PR SCH ×4 (04:42→23:07)
[2020-10-18] MEDS: HYDROmorphone 2 MG/ML, 1ML IVPush PRN (04:54)
[2020-10-18 05:32] LABS: BASOPHILS % (AUTO) 0 % (0-1); EOSINOPHILS % (AUTO) 2 % (1-7); LYMPHOCYTES % (AUTO) 9 % (22-44); MEAN CORPUSCULAR HEMOGLOBIN 33.1 pg (27.5-34.5); MEAN CORPUSCULAR HGB CONC 33.8 g/dL (33.2-36.2); MONOCYTES % (AUTO) 9 % (2-9); NEUTROPHILS % (AUTO) 79 % (42-75); PLATELET COUNT 304 x10^3/uL (130-400); RED BLOOD COUNT 3.62 x10^6/uL (4.38-5.82); RED CELL DISTRIBUTION WIDTH 12.8 % (9.4-14.8)
[2020-10-18 05:43] LABS: ALANINE AMINOTRANSFERASE 15 U/L (12-78); ALBUMIN 2.1 g/dL (3.4-5.0); ANION GAP 5 mmol/L (5-15); CALCIUM 8.3 mg/dL (8.5-10.1); CHLORIDE 92 mmol/L (98-107); CREATININE 0.39 mg/dL (0.7-1.3)
[2020-10-18 05:45] LABS: ALKALINE PHOSPHATASE 38 U/L (45-117); BILIRUBIN,TOTAL 0.4 mg/dL (0.2-1.0); TOTAL PROTEIN 5.4 g/dL (6.4-8.2)
[2020-10-18] MEDS: LACTOBACILLUS CHEW TABLET PO SCH ×4 (06:16→20:32)
[2020-10-18] MEDS: OxyconTIN ER 15 MG TAB.ER PO SCH ×2 (06:16→17:58)
[2020-10-18 07:10] VITALS: BP 100/66
[2020-10-18] MEDS: TRELEGY 100 MCG HOMEINH SCH (07:53)
[2020-10-18] MEDS: TAMSULOSIN 0.4 MG CAP.ER.24H PO SCH ×2 (09:28→09:32)
[2020-10-18] MEDS: HYDROCHLOROTHIAZIDE 12.5 MG CAPSULE PO SCH (09:29)
[2020-10-18] MEDS: DULOXETINE 30 MG CAPSULE.DR PO SCH (09:29)
[2020-10-18] MEDS: LISINOPRIL 10 MG TABLET PO SCH (09:30)
[2020-10-18 09:31] VITALS: BP 103/65
[2020-10-18 13:20] VITALS: BP 122/75
[2020-10-18] MEDS: OXYcodone IR 5MG TABLET PO PRN ×2 (15:57→23:27)
[2020-10-18 19:11] VITALS: BP 115/72
[2020-10-18] MEDS: ATORVASTATIN 40 MG TABLET PO SCH (20:32)
[2020-10-18] MEDS ORDERED: MAGNESIUM SULFATE PMX 2GM/50ML 50 ML IV ONE (22:30)
[2020-10-18] MEDS: POTASSIUM CHLORIDE 20 MEQ TAB.ER.PRT PO SCH (23:07)
[2020-10-19 00:26] VITALS: BP 96/56
[2020-10-19] MEDS: PIPERACILLIN/TAZO 3.375 GM in DEXTROSE 5% 50 ML IV SCH ×4 (02:26→22:21)
[2020-10-19] MEDS: ACETAMINOPHEN 325 MG TABLET PO SCH ×5 (02:26→21:00)
[2020-10-19] MEDS: METRONIDAZOLE PMX 500MG/100ML 100 ML IV SCH ×3 (03:56→18:28)
[2020-10-19 05:21] LABS: MEAN CORPUSCULAR HEMOGLOBIN 33.4 pg (27.5-34.5); MEAN CORPUSCULAR HGB CONC 34.5 g/dL (33.2-36.2); MEAN PLATELET VOLUME 7.4 fL (7.4-10.4); PLATELET COUNT 297 x10^3/uL (130-400); RED BLOOD COUNT 3.49 x10^6/uL (4.38-5.82); RED CELL DISTRIBUTION WIDTH 13.1 % (9.4-14.8)
[2020-10-19 05:35] LABS: ANION GAP 4 mmol/L (5-15); CALCIUM 7.8 mg/dL (8.5-10.1); CHLORIDE 93 mmol/L (98-107); CREATININE 0.42 mg/dL (0.7-1.3)
[2020-10-19] MEDS: LACTOBACILLUS CHEW TABLET PO SCH ×4 (05:53→21:02)
[2020-10-19] MEDS: VANCOMYCIN 50 MG/ML ORAL SUSP PO SCH ×3 (05:53→21:01)
[2020-10-19] MEDS: VANCOMYCIN 500 MG PR SCH ×3 (05:53→21:01)
[2020-10-19] MEDS: OxyconTIN ER 15 MG TAB.ER PO SCH ×2 (05:53→18:28)
[2020-10-19 06:09] LABS: <PLATELET ESTIMATE> ADEQUATE; <PLT MORPHOLOGY> NORMAL PLT MORPH; <RBC MORPHOLOGY> NORMAL; BAND#(MANUAL) 0.27 x10^3/uL; BANDS%(MANUAL) 2 % (0-7); LYMPH#(MANUAL) 1.21 x10^3/uL (1-3.4); LYMPHS% (MANUAL) 9 % (22-44); METAMYELOCYTES# (MANUAL) 0.13 x10^3/uL (0-0); METAMYELOCYTES% (MANUAL) 1 % (0-1); MONOS#(MANUAL) 0.67 x10^3/uL (0.3-2.7); MONOS% (MANUAL) 5 % (2-9); SEG#(MANUAL) 11.12 x10^3/uL (1.8-6.8); SEGS% (MANUAL) 83 % (42-75)
[2020-10-19 07:47] VITALS: BP 110/68
[2020-10-19 08:34] VITALS: BP 99/66
[2020-10-19] MEDS: POTASSIUM CHLORIDE 20 MEQ TAB.ER.PRT PO SCH ×2 (08:36→16:00)
[2020-10-19] MEDS: DULOXETINE 30 MG CAPSULE.DR PO SCH (08:36)
[2020-10-19] MEDS: OXYcodone IR 5MG TABLET PO PRN ×3 (08:37→21:01)
[2020-10-19] MEDS: TRELEGY 100 MCG HOMEINH SCH (08:45)
[2020-10-19] MEDS: HYDROCHLOROTHIAZIDE 12.5 MG CAPSULE PO SCH (08:48)
[2020-10-19] MEDS: TAMSULOSIN 0.4 MG CAP.ER.24H PO SCH (08:48)
[2020-10-19] MEDS: LISINOPRIL 10 MG TABLET PO SCH (08:49)
[2020-10-19 13:55] VITALS: BP 108/71
[2020-10-19] MEDS: POTASSIUM CHLORIDE 20 MEQ in SODIUM CHLORIDE 0.9% 1,000 ML IV SCH (18:28)
[2020-10-19 18:49] VITALS: BP 105/68
[2020-10-19] MEDS: ATORVASTATIN 40 MG TABLET PO SCH (21:01)
[2020-10-20] MEDS: METRONIDAZOLE PMX 500MG/100ML 100 ML IV SCH ×4 (00:06→18:22)
[2020-10-20 01:29] VITALS: BP 102/53
[2020-10-20] MEDS: VANCOMYCIN 500 MG PR SCH ×4 (03:06→22:39)
[2020-10-20] MEDS: ACETAMINOPHEN 325 MG TABLET PO SCH ×4 (03:06→20:30)
[2020-10-20] MEDS: VANCOMYCIN 50 MG/ML ORAL SUSP PO SCH ×4 (03:06→22:38)
[2020-10-20 05:27] LABS: MEAN PLATELET VOLUME 7.8 fL (7.4-10.4); PLATELET COUNT 313 x10^3/uL (130-400); RED BLOOD COUNT 3.16 x10^6/uL (4.38-5.82); RED CELL DISTRIBUTION WIDTH 12.9 % (9.4-14.8)
[2020-10-20 05:31] LABS: ANION GAP 3 mmol/L (5-15); CALCIUM 8.1 mg/dL (8.5-10.1); CHLORIDE 96 mmol/L (98-107); CREATININE 0.49 mg/dL (0.7-1.3)
[2020-10-20 05:52] LABS: BAND#(MANUAL) 0.43 x10^3/uL; BANDS%(MANUAL) 2 % (0-7); BASOS#(MANUAL) 0.21 x10^3/uL (0-0.1); BASOS% (MANUAL) 1 % (0-1); EOS#(MANUAL) 0.43 x10^3/uL (0.0-0.4); EOS% (MANUAL) 2 % (1-7); LYMPH#(MANUAL) 2.13 x10^3/uL (1-3.4); LYMPHS% (MANUAL) 10 % (22-44); METAMYELOCYTES# (MANUAL) 0.43 x10^3/uL (0-0); METAMYELOCYTES% (MANUAL) 2 % (0-1); MONOS#(MANUAL) 1.28 x10^3/uL (0.3-2.7); MONOS% (MANUAL) 6 % (2-9); SEGS% (MANUAL) 77 % (42-75)
[2020-10-20 05:53] LABS: <RBC MORPHOLOGY> NORMAL
[2020-10-20 05:54] LABS: <PLATELET ESTIMATE> ADEQUATE; <PLT MORPHOLOGY> NORMAL PLT MORPH
[2020-10-20] MEDS: LACTOBACILLUS CHEW TABLET PO SCH ×4 (05:59→22:38)
[2020-10-20] MEDS: OxyconTIN ER 15 MG TAB.ER PO SCH ×2 (05:59→18:22)
[2020-10-20 06:39] VITALS: BP 99/66
[2020-10-20] MEDS: HYDROCHLOROTHIAZIDE 12.5 MG CAPSULE PO SCH (09:00)
[2020-10-20] MEDS: TAMSULOSIN 0.4 MG CAP.ER.24H PO SCH (09:00)
[2020-10-20] MEDS: LISINOPRIL 10 MG TABLET PO SCH (09:00)
[2020-10-20] MEDS: TRELEGY 100 MCG HOMEINH SCH (09:00)
[2020-10-20] MEDS: DULOXETINE 30 MG CAPSULE.DR PO SCH (09:39)
[2020-10-20] MEDS: OXYcodone IR 5MG TABLET PO PRN ×3 (09:39→22:43)
[2020-10-20 12:03] VITALS: BP 105/68
[2020-10-20] MEDS: POTASSIUM CHLORIDE 20 MEQ in SODIUM CHLORIDE 0.9% 1,000 ML IV SCH (12:51)
[2020-10-20 20:43] VITALS: BP 113/72
[2020-10-20] MEDS: ATORVASTATIN 40 MG TABLET PO SCH (22:38)
[2020-10-21] VITALS (14 sets, daily range): BP systolic 95–120; BP diastolic 60–72
[2020-10-21] MEDS: METRONIDAZOLE PMX 500MG/100ML 100 ML IV SCH ×4 (01:04→22:32)
[2020-10-21] MEDS: ACETAMINOPHEN 325 MG TABLET PO SCH ×4 (01:14→20:30)
[2020-10-21] MEDS: VANCOMYCIN 500 MG PR SCH ×3 (04:17→16:00)
[2020-10-21] MEDS: VANCOMYCIN 50 MG/ML ORAL SUSP PO SCH ×3 (04:17→18:04)
[2020-10-21] MEDS: POTASSIUM CHLORIDE 20 MEQ in SODIUM CHLORIDE 0.9% 1,000 ML IV SCH (04:58)
[2020-10-21] MEDS: LACTOBACILLUS CHEW TABLET PO SCH ×4 (05:22→21:46)
[2020-10-21] MEDS: OXYcodone IR 5MG TABLET PO PRN (05:23)
[2020-10-21] MEDS: OxyconTIN ER 15 MG TAB.ER PO SCH ×2 (06:32→18:32)
[2020-10-21 08:11] LABS: ANION GAP 6 mmol/L (5-15); CALCIUM 8.5 mg/dL (8.5-10.1); CHLORIDE 105 mmol/L (98-107); CREATININE 0.39 mg/dL (0.7-1.3)
[2020-10-21 08:46] LABS: MEAN CORPUSCULAR HEMOGLOBIN 33.1 pg (27.5-34.5); MEAN PLATELET VOLUME 8.1 fL (7.4-10.4); PLATELET COUNT 264 x10^3/uL (130-400); RED BLOOD COUNT 1.99 x10^6/uL (4.38-5.82)
[2020-10-21] MEDS: TAMSULOSIN 0.4 MG CAP.ER.24H PO SCH (08:56)
[2020-10-21] MEDS: LISINOPRIL 10 MG TABLET PO SCH (08:57)
[2020-10-21] MEDS: DULOXETINE 30 MG CAPSULE.DR PO SCH (08:57)
[2020-10-21] MEDS: HYDROCHLOROTHIAZIDE 12.5 MG CAPSULE PO SCH (08:57)
[2020-10-21 08:58] LABS: BASOS#(MANUAL) 0.17 x10^3/uL (0-0.1); BASOS% (MANUAL) 1 % (0-1); LYMPH#(MANUAL) 1.51 x10^3/uL (1-3.4); LYMPHS% (MANUAL) 9 % (22-44); METAMYELOCYTES# (MANUAL) 0.17 x10^3/uL (0-0); METAMYELOCYTES% (MANUAL) 1 % (0-1); MONOS#(MANUAL) 1.18 x10^3/uL (0.3-2.7); MONOS% (MANUAL) 7 % (2-9); MYELOCYTES# (MANUAL) 0.17 x10^3/uL (0-0); MYELOCYTES% (MANUAL) 1 % (0-0)
[2020-10-21] MEDS: TRELEGY 100 MCG HOMEINH SCH (08:58)
[2020-10-21 08:59] LABS: <RBC MORPHOLOGY> NORMAL; BAND#(MANUAL) 1.18 x10^3/uL; BANDS%(MANUAL) 7 % (0-7); SEGS% (MANUAL) 74 % (42-75)
[2020-10-21 09:00] LABS: <PLATELET ESTIMATE> ADEQUATE; <PLT MORPHOLOGY> NORMAL PLT MORPH
[2020-10-21] MEDS: PANTOPRAZOLE 40 MG IV IVPush SCH ×2 (10:46→22:31)
[2020-10-21] MEDS ORDERED: SODIUM CHLORIDE 0.9% 250 ML IV ONE (11:00)
[2020-10-21 20:23] LABS: INTERNATIONAL NORMALIZED RATIO 1.28 (0.93-1.1); PROTHROMBIN TIME 13.6 Seconds (9.6-11.5)
[2020-10-21] MEDS: HYDROmorphone 2 MG/ML, 1ML IVPush PRN (21:27)
[2020-10-22] VITALS (7 sets, daily range): BP systolic 98–132; BP diastolic 54–72
[2020-10-22] MEDS: VANCOMYCIN 50 MG/ML ORAL SUSP PO SCH ×4 (00:03→21:00)
[2020-10-22] MEDS: VANCOMYCIN 500 MG PR SCH ×5 (00:04→23:31)
[2020-10-22] MEDS: OXYcodone IR 5MG TABLET PO PRN ×4 (00:04→19:22)
[2020-10-22] MEDS: ATORVASTATIN 40 MG TABLET PO SCH ×2 (00:04→21:00)
[2020-10-22] MEDS: ACETAMINOPHEN 325 MG TABLET PO SCH ×4 (01:29→20:59)
[2020-10-22] MEDS: METRONIDAZOLE PMX 500MG/100ML 100 ML IV SCH ×3 (04:09→17:47)
[2020-10-22] MEDS: POTASSIUM CHLORIDE 20 MEQ in SODIUM CHLORIDE 0.9% 1,000 ML IV SCH ×2 (06:00→14:22)
[2020-10-22 06:03] LABS: MEAN CORPUSCULAR HEMOGLOBIN 31.6 pg (27.5-34.5); MEAN PLATELET VOLUME 7.5 fL (7.4-10.4); PLATELET COUNT 239 x10^3/uL (130-400); RED BLOOD COUNT 2.49 x10^6/uL (4.38-5.82); RED CELL DISTRIBUTION WIDTH 17.1 % (9.4-14.8)
[2020-10-22] MEDS: LACTOBACILLUS CHEW TABLET PO SCH ×4 (06:05→20:59)
[2020-10-22] MEDS: OxyconTIN ER 15 MG TAB.ER PO SCH ×2 (06:05→18:32)
[2020-10-22 06:12] LABS: ALBUMIN 1.7 g/dL (3.4-5.0); CALCIUM 7.7 mg/dL (8.5-10.1); CHLORIDE 103 mmol/L (98-107)
[2020-10-22 06:17] LABS: ALANINE AMINOTRANSFERASE 10 U/L (12-78); ALKALINE PHOSPHATASE 26 U/L (45-117); ANION GAP 9 mmol/L (5-15); BILIRUBIN,TOTAL 0.5 mg/dL (0.2-1.0); CREATININE 0.25 mg/dL (0.7-1.3); TOTAL PROTEIN 4.2 g/dL (6.4-8.2)
[2020-10-22 06:35] LABS: EOS% (MANUAL) 4 % (1-7); LYMPH#(MANUAL) 2.11 x10^3/uL (1-3.4); LYMPHS% (MANUAL) 14 % (22-44); METAMYELOCYTES# (MANUAL) 1.06 x10^3/uL (0-0); METAMYELOCYTES% (MANUAL) 7 % (0-1); MONOS% (MANUAL) 4 % (2-9); MYELOCYTES% (MANUAL) 4 % (0-0); SEG#(MANUAL) 10.12 x10^3/uL (1.8-6.8); SEGS% (MANUAL) 67 % (42-75)
[2020-10-22 06:36] LABS: ANISOCYTOSIS 1+; POLYCHROMASIA 1+
[2020-10-22 06:37] LABS: <PLATELET ESTIMATE> ADEQUATE; <PLT MORPHOLOGY> NORMAL PLT MORPH
[2020-10-22] MEDS: TRELEGY 100 MCG HOMEINH SCH (09:00)
[2020-10-22] MEDS: DULOXETINE 30 MG CAPSULE.DR PO SCH (10:07)
[2020-10-22] MEDS: HYDROCHLOROTHIAZIDE 12.5 MG CAPSULE PO SCH (10:08)
[2020-10-22] MEDS: TAMSULOSIN 0.4 MG CAP.ER.24H PO SCH (10:08)
[2020-10-22] MEDS: PANTOPRAZOLE 40 MG IV IVPush SCH (10:08)
[2020-10-22] MEDS: LISINOPRIL 10 MG TABLET PO SCH (10:08)
[2020-10-22] MEDS ORDERED: PROPOFOL 10 MG/ML, 20ML ONE (11:11)
[2020-10-22] MEDS ORDERED: MIDAZOLAM 1 MG/ML, 2ML ONE (11:11)
[2020-10-22] MEDS ORDERED: PROPOFOL 100 ML ONE (11:13)
[2020-10-22] MEDS ORDERED: PHENYLEPHRINE 10 MG/ML ONE (11:33)
[2020-10-22] MEDS ORDERED: MAGNESIUM SULFATE PMX 4GM/100M 100 ML IVPB ONE ×2 (16:00→21:00)
[2020-10-22] MEDS ORDERED: POTASSIUM PHOSPHATE 66 MEQ in SODIUM CHLORIDE 0.9% 1,000 ML IV ONE (16:00)
[2020-10-22] MEDS: SUCRALFATE 1 GM/10 ML UDC PO SCH ×2 (18:32→20:59)
[2020-10-23 00:23] VITALS: BP 100/63
[2020-10-23] MEDS: PANTOPRAZOLE 40 MG IV IVPush SCH ×2 (01:40→12:03)
[2020-10-23] MEDS: METRONIDAZOLE PMX 500MG/100ML 100 ML IV SCH ×4 (01:41→20:39)
[2020-10-23] MEDS: VANCOMYCIN 50 MG/ML ORAL SUSP PO SCH ×4 (02:40→21:21)
[2020-10-23] MEDS: ACETAMINOPHEN 325 MG TABLET PO SCH ×4 (02:40→21:20)
[2020-10-23] MEDS: OXYcodone IR 5MG TABLET PO PRN ×3 (02:46→23:55)
[2020-10-23 05:38] LABS: ANION GAP 5 mmol/L (5-15); CALCIUM 7.1 mg/dL (8.5-10.1); CHLORIDE 103 mmol/L (98-107)
[2020-10-23 05:44] LABS: CREATININE 0.23 mg/dL (0.7-1.3); PREALBUMIN 18.1 mg/dL (20.0-40.0); TRIGLYCERIDES 137 mg/dL (50-200)
[2020-10-23] MEDS: LACTOBACILLUS CHEW TABLET PO SCH ×4 (05:55→21:20)
[2020-10-23] MEDS: VANCOMYCIN 500 MG PR SCH ×3 (05:56→21:21)
[2020-10-23] MEDS: OxyconTIN ER 15 MG TAB.ER PO SCH ×2 (06:27→18:31)
[2020-10-23] MEDS: SUCRALFATE 1 GM/10 ML UDC PO SCH ×4 (06:27→21:20)
[2020-10-23 07:55] VITALS: BP 107/67
[2020-10-23] MEDS: TRELEGY 100 MCG HOMEINH SCH (08:56)
[2020-10-23] MEDS: LISINOPRIL 10 MG TABLET PO SCH (08:58)
[2020-10-23] MEDS: HYDROCHLOROTHIAZIDE 12.5 MG CAPSULE PO SCH (08:59)
[2020-10-23] MEDS: DULOXETINE 30 MG CAPSULE.DR PO SCH (08:59)
[2020-10-23] MEDS: TAMSULOSIN 0.4 MG CAP.ER.24H PO SCH (08:59)
[2020-10-23] MEDS ORDERED: POTASSIUM CHLORIDE 20 MEQ in SODIUM CHLORIDE 0.9% 1,000 ML IV SCH (09:30)
[2020-10-23 13:50] VITALS: BP 98/59
[2020-10-23] MEDS ORDERED: PVN PER PHARMACY MC PRN (17:00)
[2020-10-23] MEDS ORDERED: AMINO ACID 10% IV SCH ×2 (17:00)
[2020-10-23] MEDS ORDERED: [UNRECOGNIZED DRUG - OTHER] IV SCH (17:00)
[2020-10-23] MEDS ORDERED: DEXTROSE 70% IV SCH ×2 (17:00)
[2020-10-23] MEDS ORDERED: [UNRECOGNIZED DRUG - OTHER] IV SCH (17:00)
[2020-10-23] MEDS ORDERED: DEXTROSE 50%, 50ML SYRINGE IVPush PRN ×2 (17:00→22:30)
[2020-10-23] MEDS ORDERED: DEXTROSE 10% 500 ML IV PRN (17:00)
[2020-10-23] MEDS ORDERED: FAT EMUL IV SCH ×2 (17:00)
[2020-10-23] MEDS ORDERED: FILTER, DISP 1.2 MICRON FOR TPN/PVN IV PRN (17:00)
[2020-10-23] MEDS ORDERED: SMOF TPN IV SCH ×2 (17:00)
[2020-10-23 20:45] VITALS: BP 95/54
[2020-10-23] MEDS: ATORVASTATIN 40 MG TABLET PO SCH (21:20)
[2020-10-23] MEDS ORDERED: SODIUM CHLORIDE FLUSH 10ML SYR IVF SCH (22:30)
[2020-10-23] MEDS ORDERED: GLUCAGON 1 MG IM PRN (22:30)
[2020-10-23] MEDS ORDERED: DEXTROSE 4 GM TAB.CHEW PO PRN (22:30)
[2020-10-23] MEDS: INSULIN REGULAR LOW DOSE Q6H X 48HRS SQ-INSULIN SCH (23:55)
[2020-10-24 01:03] VITALS: BP 101/53
[2020-10-24] MEDS: VANCOMYCIN 500 MG PR SCH ×2 (02:00→08:39)
[2020-10-24] MEDS: METRONIDAZOLE PMX 500MG/100ML 100 ML IV SCH ×4 (02:00→21:27)
[2020-10-24] MEDS: PANTOPRAZOLE 40 MG IV IVPush SCH ×2 (02:00→16:17)
[2020-10-24] MEDS: ACETAMINOPHEN 325 MG TABLET PO SCH ×4 (02:01→21:26)
[2020-10-24] MEDS: VANCOMYCIN 50 MG/ML ORAL SUSP PO SCH ×4 (03:13→21:27)
[2020-10-24] MEDS: INSULIN REGULAR LOW DOSE Q6H X 48HRS SQ-INSULIN SCH ×3 (05:00→16:43)
[2020-10-24 05:49] LABS: MEAN CORPUSCULAR HGB CONC 34.9 g/dL (33.2-36.2); MEAN PLATELET VOLUME 7.4 fL (7.4-10.4); PLATELET COUNT 284 x10^3/uL (130-400); RED CELL DISTRIBUTION WIDTH 15.9 % (9.4-14.8)
[2020-10-24] MEDS: LACTOBACILLUS CHEW TABLET PO SCH ×4 (05:52→21:26)
[2020-10-24] MEDS: OxyconTIN ER 15 MG TAB.ER PO SCH ×2 (05:52→18:27)
[2020-10-24 06:02] LABS: CALCIUM 7.7 mg/dL (8.5-10.1); CHLORIDE 102 mmol/L (98-107)
[2020-10-24 06:08] LABS: ALANINE AMINOTRANSFERASE 16 U/L (12-78); ALKALINE PHOSPHATASE 36 U/L (45-117); ANION GAP 4 mmol/L (5-15); BILIRUBIN,TOTAL 0.2 mg/dL (0.2-1.0); CREATININE 0.34 mg/dL (0.7-1.3); TOTAL PROTEIN 4.9 g/dL (6.4-8.2)
[2020-10-24 06:23] LABS: BASOS% (MANUAL) 3 % (0-1); EOS% (MANUAL) 3 % (1-7); LYMPHS% (MANUAL) 16 % (22-44); METAMYELOCYTES% (MANUAL) 5 % (0-1); MONOS% (MANUAL) 8 % (2-9); MYELOCYTES% (MANUAL) 2 % (0-0); SEGS% (MANUAL) 63 % (42-75)
[2020-10-24 06:24] LABS: <PLATELET ESTIMATE> ADEQUATE; <PLT MORPHOLOGY> NORMAL PLT MORPH; ANISOCYTOSIS 1+; POLYCHROMASIA 1+
[2020-10-24] MEDS: SUCRALFATE 1 GM/10 ML UDC PO SCH ×4 (06:26→21:26)
[2020-10-24 07:14] VITALS: BP 102/55
[2020-10-24] MEDS: TRELEGY 100 MCG HOMEINH SCH (09:00)
[2020-10-24] MEDS: LISINOPRIL 10 MG TABLET PO SCH (09:00)
[2020-10-24] MEDS: TAMSULOSIN 0.4 MG CAP.ER.24H PO SCH (09:00)
[2020-10-24] MEDS: HYDROCHLOROTHIAZIDE 12.5 MG CAPSULE PO SCH (09:00)
[2020-10-24 10:21] VITALS: BP 93/62
[2020-10-24] MEDS: DULOXETINE 30 MG CAPSULE.DR PO SCH (10:24)
[2020-10-24 14:35] VITALS: BP 91/51
[2020-10-24 18:42] VITALS: BP 102/59
[2020-10-24] MEDS: ATORVASTATIN 40 MG TABLET PO SCH (21:26)
[2020-10-24] MEDS: OXYcodone IR 5MG TABLET PO PRN (21:48)
[2020-10-25] MEDS: PANTOPRAZOLE 40 MG IV IVPush SCH ×2 (04:21→15:44)
[2020-10-25] MEDS: LACTOBACILLUS CHEW TABLET PO SCH ×3 (04:21→15:38)
[2020-10-25] MEDS: ACETAMINOPHEN 325 MG TABLET PO SCH ×3 (04:22→15:38)
[2020-10-25] MEDS: METRONIDAZOLE PMX 500MG/100ML 100 ML IV SCH ×2 (04:22→10:34)
[2020-10-25 04:34] VITALS: BP 97/50
[2020-10-25] MEDS: VANCOMYCIN 50 MG/ML ORAL SUSP PO SCH (05:18)
[2020-10-25 05:39] LABS: CHLORIDE 103 mmol/L (98-107)
[2020-10-25 05:44] LABS: ANION GAP 4 mmol/L (5-15); CALCIUM 7.8 mg/dL (8.5-10.1); CREATININE 0.28 mg/dL (0.7-1.3)
[2020-10-25 05:46] LABS: MEAN CORPUSCULAR HEMOGLOBIN 32.2 pg (27.5-34.5); MEAN CORPUSCULAR HGB CONC 34.6 g/dL (33.2-36.2); MEAN PLATELET VOLUME 7.6 fL (7.4-10.4); PLATELET COUNT 294 x10^3/uL (130-400); RED BLOOD COUNT 2.87 x10^6/uL (4.38-5.82); RED CELL DISTRIBUTION WIDTH 15.9 % (9.4-14.8)
[2020-10-25] MEDS: OxyconTIN ER 15 MG TAB.ER PO SCH ×2 (06:02→18:33)
[2020-10-25] MEDS: SUCRALFATE 1 GM/10 ML UDC PO SCH ×3 (06:02→15:38)
[2020-10-25 06:23] LABS: BAND#(MANUAL) 0.51 x10^3/uL; BANDS%(MANUAL) 5 % (0-7); EOS% (MANUAL) 4 % (1-7); LYMPH#(MANUAL) 1.31 x10^3/uL (1-3.4); LYMPHS% (MANUAL) 13 % (22-44); METAMYELOCYTES% (MANUAL) 3 % (0-1); MYELOCYTES% (MANUAL) 1 % (0-0)
[2020-10-25 06:24] LABS: MONOS#(MANUAL) 0.91 x10^3/uL (0.3-2.7); MONOS% (MANUAL) 9 % (2-9); POLYCHROMASIA 1+; SEG#(MANUAL) 6.57 x10^3/uL (1.8-6.8); SEGS% (MANUAL) 65 % (42-75)
[2020-10-25 06:25] LABS: <PLATELET ESTIMATE> ADEQUATE; <PLT MORPHOLOGY> NORMAL PLT MORPH; ANISOCYTOSIS 1+
[2020-10-25 07:23] VITALS: BP 113/56
[2020-10-25] MEDS: LISINOPRIL 10 MG TABLET PO SCH (07:43)
[2020-10-25] MEDS: DULOXETINE 30 MG CAPSULE.DR PO SCH (07:43)
[2020-10-25] MEDS: HYDROCHLOROTHIAZIDE 12.5 MG CAPSULE PO SCH (07:43)
[2020-10-25] MEDS: TAMSULOSIN 0.4 MG CAP.ER.24H PO SCH (07:43)
[2020-10-25] MEDS: TRELEGY 100 MCG HOMEINH SCH (07:46)
[2020-10-25 09:13] VITALS: BP 109/67
[2020-10-25] MEDS: OXYcodone IR 5MG TABLET PO PRN (09:15)
[2020-10-25 13:55] VITALS: BP 119/55
[2020-10-25] MEDS ORDERED: PANTOPRAZOLE 40MG TABLET PO SCH (16:08)
[2020-10-25] MEDS ORDERED: TRELEGY HOMEINH (16:26)
[2020-10-25] MEDS ORDERED: ACID1TAB7 PO (16:26)
[2020-10-25] MEDS ORDERED: SUCR1ORA5 PO (16:26)
[2020-10-25] MEDS ORDERED: PANT40TA6 PO (16:26)
[2020-10-26] MEDS ORDERED: INSULIN REGULAR LOW DOSE QDAY SQ-INSULIN SCH (05:00)
== END 2020-10-25 20:05 | disposition home health service (06) | DRG 853 ==
LOC: ED 19:27 → EDIP 20:25 → 5SO 22:53 → CCU 10-10 07:40 → 4NE 10-10 18:19
PROVIDERS: ADMIT Internal Medicine; ATTEND Internal Medicine
PROC: 0DTE0ZZ Resection of Large Intestine, Open Approach (ICD-10-PCS; 2020-10-10)
PROC: 0D1B0Z4 Bypass Ileum to Cutaneous, Open Approach (ICD-10-PCS; 2020-10-10)
PROC: 5A1935Z Respiratory Ventilation, Less than 24 Consecutive Hours (ICD-10-PCS; 2020-10-10)
PROC: 0BH17EZ Insertion of Endotracheal Airway into Trachea, Via Natural or Artificial Opening (ICD-10-PCS; 2020-10-10)
PROC: 0WJG0ZZ Inspection of Peritoneal Cavity, Open Approach (ICD-10-PCS; principal; 2020-10-10 04:00)
PROC: 0DB68ZX Excision of Stomach, Via Natural or Artificial Opening Endoscopic, Diagnostic (ICD-10-PCS; 2020-10-22)
DX: A41.4 Sepsis due to anaerobes (principal); J96.01 Acute respiratory failure with hypoxia; R65.21 Severe sepsis with septic shock; E43 Unspecified severe protein-calorie malnutrition; J18.9 Pneumonia, unspecified organism; K22.11 Ulcer of esophagus with bleeding; K65.1 Peritoneal abscess; A04.72 Enterocolitis due to Clostridium difficile, not specified as recurrent; N17.9 Acute kidney failure, unspecified; E87.1 Hypo-osmolality and hyponatremia; J44.0 Chronic obstructive pulmonary disease with (acute) lower respiratory infection; J98.11 Atelectasis; K56.609 Unspecified intestinal obstruction, unspecified as to partial versus complete obstruction; K56.7 Ileus, unspecified; Z99.11 Dependence on respirator [ventilator] status; K51.00 Ulcerative (chronic) pancolitis without complications; Z20.822 Contact with and (suspected) exposure to COVID-19; D50.0 Iron deficiency anemia secondary to blood loss (chronic); D53.9 Nutritional anemia, unspecified; E78.5 Hyperlipidemia, unspecified; F17.210 Nicotine dependence, cigarettes, uncomplicated; G89.4 Chronic pain syndrome; I11.0 Hypertensive heart disease with heart failure; I73.9 Peripheral vascular disease, unspecified; I95.9 Hypotension, unspecified; J98.4 Other disorders of lung; K21.9 Gastro-esophageal reflux disease without esophagitis; K25.9 Gastric ulcer, unspecified as acute or chronic, without hemorrhage or perforation; F32.9 Major depressive disorder, single episode, unspecified; R91.1 Solitary pulmonary nodule; N40.0 Benign prostatic hyperplasia without lower urinary tract symptoms; E87.6 Hypokalemia; E83.39 Other disorders of phosphorus metabolism; E83.42 Hypomagnesemia; E88.09 Other disorders of plasma-protein metabolism, not elsewhere classified; Z79.02 Long term (current) use of antithrombotics/antiplatelets; Z79.891 Long term (current) use of opiate analgesic; Z82.5 Family history of asthma and other chronic lower respiratory diseases; Z83.6 Family history of other diseases of the respiratory system; Z82.49 Family history of ischemic heart disease and other diseases of the circulatory system; Z87.11 Personal history of peptic ulcer disease; Z87.19 Personal history of other diseases of the digestive system; Z79.899 Other long term (current) drug therapy; Z79.01 Long term (current) use of anticoagulants; Z98.1 Arthrodesis status
CPT/HCPCS: 36415; 36600; 71045; 74018; 74177; 80048; 80053; 81003; 82040; 82550; 82570; 82607; 82803; 82962; 83605; 83735; 84100; 84134; 84145; 84443; 84478; 85014; 85018; 85025; 85610; 85730; 86850; 86900; 86923; 87040; 87046; 87070; 87081; 87205; 87324; 87427; 87635; 88305; 88309; 93005; 94002; 94640; 96365; 99291; C8929; G0378; J0610; J0696; J1100; J1170; J1644; J1650; J1815; J2250; J2405; J2543; J2704; J3010; J3370; J3475; J3480; J7613; J7626; Q9957; Q9967; C1765; C9113; J0330; J1720; J2370; J3420; J7030; J7040; J7050; J7120; P9016